=== PATIENT | female | born 1955 ===

== ENCOUNTER → 2020-12-06 11:16 | Outpatient (BNVA) | payer MEDICARE, MEDICAID, SELFPAY | PROVIDERS: PCP Internal Medicine; Visit Provider Internal Medicine | DX: J44.9 Chronic obstructive pulmonary disease, unspecified (principal); R05 Cough | CPT/HCPCS: 99212 ==

== ENCOUNTER 2021-01-09 13:11 | Outpatient (REF) | payer MEDICARE, MEDICAID, SELFPAY ==
--- NOTE | 2021-01-09 14:59 | PFT_ITS ---
The patient came to have pulmonary function test. She tried several times, but could not perform the test. She was just not able to hold her breath and blow out forcefully. Thus, this will be considered as no tests. MD TEODORO Heath/RADHA / [phone]
== END 2021-01-09 13:12 | disposition home or self-care (01) ==
LOC: HO.RESP 13:11
PROVIDERS: Visit Provider Internal Medicine
DX: J44.9 Chronic obstructive pulmonary disease, unspecified (principal); R05 Cough
CPT/HCPCS: 99212

== ENCOUNTER 2021-01-09 15:20 | Emergency (ER) | payer MEDICARE, MEDICAID, SELFPAY ==
[2021-01-09 15:27] VITALS: BP 177/88; PULSE 52; RESP 16; TEMP 36.7; O2SAT 98; BMI 36.8
== END 2021-01-09 17:08 | disposition left against medical advice (07) ==
PROVIDERS: Emergency Provider Emergency Medicine; PCP Internal Medicine
DX: R51.9 Headache, unspecified (principal); M79.10 Myalgia, unspecified site; J44.9 Chronic obstructive pulmonary disease, unspecified
CPT/HCPCS: 99212; 99281; 99283

== ENCOUNTER 2021-01-15 13:52 | Outpatient (REF) | payer MEDICARE, MEDICAID, SELFPAY ==
--- NOTE | ~2021-01-15 | MM_ITS ---
EXAMINATION: MM DIAGNOSTIC DIGITAL BREAST TOMOSYNTHESIS, BILATERAL CLINICAL INFORMATION: Due for yearly. Also follow-up probable benign asymmetric densities x2 medial right breast. The lifetime risk of breast cancer based on the Tyrer-Cuzick Model is 4%. COMPARISON: Mammography: 04/13/2019, 10/12/2018, 02/03/2018, 01/28/2018 (BI-RADS 0), 12/10/2016 TECHNIQUE: Digital breast tomosynthesis is performed in both the craniocaudal and mediolateral oblique views along with computer-aided detection (CAD). Synthesized 2D images are generated from the tomosynthesis. Additional views are obtained: Magnification right CC magnification right LM. FINDINGS: There are scattered areas of fibroglandular density (ACR BI-RADS breast composition Category b). The 2 nodular asymmetries lower inner right breast for follow-up are no longer clearly visualized. There is no developing density. Neither breast shows interval mass or architectural abnormality. There are no abnormal calcifications. The axilla and skin contours are unremarkable. Results are provided to the patient at time of visit by the technologist. Patient may return to routine annual screening. MM/MM tomosynthesis diagnostic BI IMPRESSION: No mammographic evidence of malignancy. ASSESSMENT: BI-RADS 2: Benign RECOMMENDATION: Routine annual mammography screening. This patient's information was entered into a reminder system with a target due date for their next mammogram.
== END 2021-01-15 13:53 | disposition home or self-care (01) ==
LOC: HO.MAMMO 13:52
PROVIDERS: PCP Internal Medicine; Visit Provider Internal Medicine
DX: R92.8 Other abnormal and inconclusive findings on diagnostic imaging of breast (principal)
CPT/HCPCS: 77062; 77066

== ENCOUNTER → 2021-03-21 12:59 | Outpatient (BNVA) | payer MEDICARE, MEDICAID, SELFPAY | PROVIDERS: PCP Internal Medicine; Visit Provider Internal Medicine | DX: J44.9 Chronic obstructive pulmonary disease, unspecified (principal); R05 Cough | CPT/HCPCS: 99212 ==

== ENCOUNTER → 2021-07-24 13:41 | Outpatient (BNVA) | payer MEDICARE, MEDICAID, SELFPAY | PROVIDERS: PCP Internal Medicine; Visit Provider Internal Medicine | DX: J44.9 Chronic obstructive pulmonary disease, unspecified (principal); R05 Cough; J30.9 Allergic rhinitis, unspecified; Z88.8 Allergy status to other drugs, medicaments and biological substances; Z79.899 Other long term (current) drug therapy | CPT/HCPCS: 99212 ==

== ENCOUNTER 2021-08-09 07:51 | Outpatient (REF) | payer MEDICARE, MEDICAID, SELFPAY ==
--- NOTE | ~2021-08-09 | XR_ITS ---
EXAMINATION: XR BILATERAL KNEE CLINICAL INFORMATION: Right knee pain. COMPARISON: Right knee 04/04/2020. TECHNIQUE: AP bilateral knee standing. Right knee 2 views. FINDINGS: AP BILATERAL KNEE: There is mild reduction in the medial and lateral compartments of both knees. No bony erosive changes seen. There is mild periarticular spurring medial and lateral compartment left knee. RIGHT KNEE: There is loss of patellar compartment joint space with moderate anterior superior patellar enthesophyte and anterior posterior smaller patellar enthesophyte. No loose body seen. No abnormal joint effusions seen. No acute fracture or dislocation. XR/XR knee RT 2V IMPRESSION: Mild degenerative changes medial and lateral compartment both knees. Moderate degenerative changes patellofemoral compartment right knee with superior patellar enthesophytes.
--- NOTE | ~2021-08-09 | XR_ITS ---
EXAMINATION: XR BILATERAL KNEE CLINICAL INFORMATION: Right knee pain. COMPARISON: Right knee 04/04/2020. TECHNIQUE: AP bilateral knee standing. Right knee 2 views. FINDINGS: AP BILATERAL KNEE: There is mild reduction in the medial and lateral compartments of both knees. No bony erosive changes seen. There is mild periarticular spurring medial and lateral compartment left knee. RIGHT KNEE: There is loss of patellar compartment joint space with moderate anterior superior patellar enthesophyte and anterior posterior smaller patellar enthesophyte. No loose body seen. No abnormal joint effusions seen. No acute fracture or dislocation. XR/XR knee standing BI IMPRESSION: Mild degenerative changes medial and lateral compartment both knees. Moderate degenerative changes patellofemoral compartment right knee with superior patellar enthesophytes.
== END 2021-08-09 07:52 | disposition home or self-care (01) ==
LOC: HO.HOSX 07:51
PROVIDERS: Visit Provider Physician Assistant
DX: M17.11 Unilateral primary osteoarthritis, right knee (principal); M25.561 Pain in right knee; M25.562 Pain in left knee; J00 Acute nasopharyngitis [common cold]; J44.9 Chronic obstructive pulmonary disease, unspecified; Z88.8 Allergy status to other drugs, medicaments and biological substances
CPT/HCPCS: 20610; 73560; 73565; 99202; J1040

== ENCOUNTER → 2022-01-15 13:46 | Outpatient (BNVA) | payer MEDICARE, MEDICAID, SELFPAY | PROVIDERS: PCP Internal Medicine; Visit Provider Internal Medicine | DX: J44.9 Chronic obstructive pulmonary disease, unspecified (principal); J30.9 Allergic rhinitis, unspecified | CPT/HCPCS: 99212 ==

== ENCOUNTER → 2022-03-31 13:16 | Outpatient (BNVA) | payer MEDICARE, MEDICAID, SELFPAY | PROVIDERS: PCP Internal Medicine; Visit Provider Physician Assistant | DX: M17.0 Bilateral primary osteoarthritis of knee (principal) | CPT/HCPCS: 20610; 99212; J1020 ==

== ENCOUNTER 2022-07-24 07:39 | Outpatient (REF) | payer MEDICARE, MEDICAID, SELFPAY ==
--- NOTE | ~2022-07-24 | MM_ITS ---
EXAMINATION: MM SCREENING DIGITAL BREAST TOMOSYNTHESIS, BILATERAL CLINICAL INFORMATION: Screening. Asymptomatic. The lifetime risk of breast cancer based on the Tyrer-Cuzick Model is 3%. COMPARISON: Mammography: 01/15/2021, 02/11/2019, 10/12/2018, 02/03/2018, 01/28/2018 TECHNIQUE: Digital breast tomosynthesis is performed in both the craniocaudal and mediolateral oblique views along with computer-aided detection (CAD). Synthesized 2D images are generated from the tomosynthesis. FINDINGS: There are scattered areas of fibroglandular density (ACR BI-RADS breast composition Category b). There are no significant masses, abnormal calcifications, or other abnormalities. Parenchymal pattern is similar to prior studies. There is no developing density or architectural abnormality. The axilla and skin contours are unremarkable. No significant changes. MM/MM tomosynthesis screening BI IMPRESSION: No mammographic evidence of malignancy. ASSESSMENT: BI-RADS 1: Negative RECOMMENDATION: Routine annual mammography screening. This patient's information was entered into a reminder system with a target due date for their next mammogram.
== END 2022-07-24 07:40 | disposition home or self-care (01) ==
LOC: HO.MAMMO 07:39
PROVIDERS: Visit Provider Internal Medicine
DX: Z12.31 Encounter for screening mammogram for malignant neoplasm of breast (principal)
CPT/HCPCS: 77063; 77067

== ENCOUNTER 2022-08-01 10:08 | Outpatient (REF) | payer MEDICARE, MEDICAID, SELFPAY ==
--- NOTE | ~2022-08-01 | XR_ITS ---
EXAMINATION: XR KNEE, RIGHT XR KNEE, LEFT XR KNEE, STANDING BILATERAL CLINICAL INFORMATION: Pain COMPARISON: Right knee radiograph from 08/09/2021, bilateral standing knees from 08/09/2021 TECHNIQUE: 2 views of each knee and single bilateral standing knees FINDINGS: RIGHT: No acute visible fracture or dislocation. Multi moderate multicompartment degenerative changes. Moderate narrowing of the medial femorotibial compartment and lateral patellofemoral compartment. Enthesopathy at the quadriceps insertion site. Fabella noted in the posterior compartment. Articular osteophyte along the tibial plateau and distal femoral condyle. Joint spaces and alignment are otherwise maintained. Small knee joint effusion. Soft tissues are unremarkable. LEFT: No acute visible fracture or dislocation. Mild to moderate compartment degenerative changes. Mild to moderate narrowing of the medial femorotibial compartment and lateral patellofemoral compartment. Periarticular aspect along the tibial plateau and distal femoral condyle. Enthesopathy at the quadriceps insertion site. A fabella is noted in the posterior compartment. Joint spaces and alignment are otherwise maintained. Small knee joint effusion. Soft tissues are unremarkable. XR/XR knee standing BI IMPRESSION: 1. No acute visible fracture or dislocation. 2. Bilateral mild to moderate multicompartment degenerative changes. 3. Bilateral small knee joint effusions.
--- NOTE | ~2022-08-01 | XR_ITS ---
EXAMINATION: XR KNEE, RIGHT XR KNEE, LEFT XR KNEE, STANDING BILATERAL CLINICAL INFORMATION: Pain COMPARISON: Right knee radiograph from 08/09/2021, bilateral standing knees from 08/09/2021 TECHNIQUE: 2 views of each knee and single bilateral standing knees FINDINGS: RIGHT: No acute visible fracture or dislocation. Multi moderate multicompartment degenerative changes. Moderate narrowing of the medial femorotibial compartment and lateral patellofemoral compartment. Enthesopathy at the quadriceps insertion site. Fabella noted in the posterior compartment. Articular osteophyte along the tibial plateau and distal femoral condyle. Joint spaces and alignment are otherwise maintained. Small knee joint effusion. Soft tissues are unremarkable. LEFT: No acute visible fracture or dislocation. Mild to moderate compartment degenerative changes. Mild to moderate narrowing of the medial femorotibial compartment and lateral patellofemoral compartment. Periarticular aspect along the tibial plateau and distal femoral condyle. Enthesopathy at the quadriceps insertion site. A fabella is noted in the posterior compartment. Joint spaces and alignment are otherwise maintained. Small knee joint effusion. Soft tissues are unremarkable. XR/XR knee LT 2V IMPRESSION: 1. No acute visible fracture or dislocation. 2. Bilateral mild to moderate multicompartment degenerative changes. 3. Bilateral small knee joint effusions.
--- NOTE | ~2022-08-01 | XR_ITS ---
EXAMINATION: XR KNEE, RIGHT XR KNEE, LEFT XR KNEE, STANDING BILATERAL CLINICAL INFORMATION: Pain COMPARISON: Right knee radiograph from 08/09/2021, bilateral standing knees from 08/09/2021 TECHNIQUE: 2 views of each knee and single bilateral standing knees FINDINGS: RIGHT: No acute visible fracture or dislocation. Multi moderate multicompartment degenerative changes. Moderate narrowing of the medial femorotibial compartment and lateral patellofemoral compartment. Enthesopathy at the quadriceps insertion site. Fabella noted in the posterior compartment. Articular osteophyte along the tibial plateau and distal femoral condyle. Joint spaces and alignment are otherwise maintained. Small knee joint effusion. Soft tissues are unremarkable. LEFT: No acute visible fracture or dislocation. Mild to moderate compartment degenerative changes. Mild to moderate narrowing of the medial femorotibial compartment and lateral patellofemoral compartment. Periarticular aspect along the tibial plateau and distal femoral condyle. Enthesopathy at the quadriceps insertion site. A fabella is noted in the posterior compartment. Joint spaces and alignment are otherwise maintained. Small knee joint effusion. Soft tissues are unremarkable. XR/XR knee RT 2V IMPRESSION: 1. No acute visible fracture or dislocation. 2. Bilateral mild to moderate multicompartment degenerative changes. 3. Bilateral small knee joint effusions.
== END 2022-08-01 10:09 | disposition home or self-care (01) ==
LOC: HO.HOSX 10:08
PROVIDERS: Visit Provider Physician Assistant
DX: M17.0 Bilateral primary osteoarthritis of knee (principal)
CPT/HCPCS: 20610; 73560; 73565; 99212; J1040

== ENCOUNTER → 2023-02-23 13:10 | Outpatient (BNVA) | payer MEDICARE, MEDICAID, SELFPAY | PROVIDERS: PCP Internal Medicine; Visit Provider Physician Assistant | DX: M17.11 Unilateral primary osteoarthritis, right knee (principal); M17.12 Unilateral primary osteoarthritis, left knee | CPT/HCPCS: 20610; 99212; J1040 ==

== ENCOUNTER → 2023-03-26 12:59 | Outpatient (BNVA) | payer MEDICARE, MEDICAID, SELFPAY | PROVIDERS: PCP Internal Medicine; Visit Provider Internal Medicine | DX: J44.9 Chronic obstructive pulmonary disease, unspecified (principal); R05.9 Cough, unspecified; Z87.891 Personal history of nicotine dependence | CPT/HCPCS: 99212 ==

== ENCOUNTER 2023-06-02 09:23 | Outpatient (REF) | payer MEDICARE, MEDICAID, SELFPAY ==
[2023-06-02 11:38] LABS: MANUAL DIFF FLAG NO
[2023-06-02 11:51] LABS: Basophils Absolute Auto 0.1 X10*3/uL (0.0-0.2); Basophils Percent Auto 1.1 % (0-2); Eosinophils Absolute Auto 0.1 X10*3/uL (0.0-0.4); Eosinophils Percent Auto 1.9 % (0-4); Hemoglobin 11.3 g/dl (12.0-16.0); Imm Gran Abs Auto 0.02 X10*3/uL (0.00-0.03); Imm Gran Pct Auto 0.3 % (0.0-0.4); Lymphocytes Absolute Auto 2.4 X10*3/uL (1.2-4.9); Lymphocytes Percent Auto 33.8 % (20-40); Mean Corpuscular HGB Conc 31.4 g/dl (31.0-35.0); Mean Corpuscular Hemoglobin 26.1 pg (27.0-33.0); Mean Corpuscular Volume 83.1 fL (80.0-98.0); Mean Platelet Volume 12.5 fL (9.4-12.3); Monocytes Absolute Auto 0.7 X10*3/uL (0.1-1.2); Monocytes Percent Auto 10.3 % (2-11); Neutrophils Absolute Auto 3.8 x10*3/uL (2.0-8.3); Neutrophils Percent Auto 52.6 % (45-73); Platelet Count 240 X10*3/uL (160-400); Red Blood Count 4.33 X10*6/uL (4.20-5.50); Red Cell Distribution Width 14.6 % (11.0-16.0); White Blood Count 7.2 X10*3/uL (4.8-10.8)
[2023-06-02 12:11] LABS: Estimated Average Glucose 114 mg/dL; Hemoglobin A1c % 5.6 %
[2023-06-02 12:24] LABS: HIV AB/AG Nonreactive (Nonreactive); HIV Num 1 0.05 S/CO (0.00-0.99)
[2023-06-02 12:25] LABS: ~HepC Num1 0.07 S/CO (0.00-0.79); ~Hepatitis C Antibody Nonreactive (Nonreactive)
== END 2023-06-02 09:24 | disposition home or self-care (01) ==
LOC: HO.HHCL 09:23
PROVIDERS: Visit Provider Internal Medicine
DX: R53.83 Other fatigue (principal); E83.10 Disorder of iron metabolism, unspecified
CPT/HCPCS: 36415; 83036; 85025; 86803; 87389

== ENCOUNTER 2023-08-10 10:24 | Outpatient (AMB) | payer MEDICARE, MEDICAID, SELFPAY ==
--- NOTE | 2023-08-10 10:38 | A.OFFVIS_ITS ---
Intake Vital Signs 08/10/23 10:47 Height 5 ft 4 in Weight 205 lb BMI 35.2 Intake Visit Reasons: OV- B/L Knee pain, last inj 02/23/23 Intake Note: Roxanne is a 67 year old female presents today for a follow up for her bilateral knee pain, last injection 02/23/23. Patient reports her last injection gave her relief for 5 months and would like to repeat. Allergies lisinopril [LISINOPRIL] Allergy (Unknown, Verified 08/10/23 10:38) UNK Vistaril Allergy (Unknown, Uncoded 03/26/23 13:37) Nausea, upset stomach HPI OV- B/L Knee pain, last inj 02/23/23 HPI Details 68-year-old female who presents in the [facility] today for a follow up of bilateral knee pain. The patient has a cortisone injection in the bilateral knees on 02/23/2023. She claims the injection gave her 5 months of relief. She would like to repeat the injection while in the office today. [facility] Medical History Allergic rhinitis COPD (chronic obstructive pulmonary disease) Cough Social History Patient Tobacco Use Status: Former Tobacco user Review of Systems Const All systems reviewed & are unremarkable except as noted in HPI and below Physical Exam Vital Signs: BMI result Body Mass Index 35.2 Const General: cooperative, healthy appearing and no acute distress Resp Effort & Inspection: normal respiratory effort and able to speak in complete sentences Cardio Rate: regular rate Peripheral pulses: Peripheral pulses 2+ throughout GI Palpation (GI): Soft to palpation Skin Lesions: no lesions Rashes: no rashes Extrem Other: Bilateral knees: Skin intact. No erythema or joint effusion. Full ROM with crepitus. Calf supple non tender. Office Procedures Joint Injection/Drain Joint Injection/Drain Primary Site: right knee Secondary Site: left knee Prep: site was prepped using aseptic technique, ethochloride spray was applied and injection warnings given Injected: 80 mg of, DepoMedrol, with 8 mL of (2% plain lido) and in the joint Approach Used: anterolateral Procedure: The patient tolerated the procedure well, but had some pain with the injection and there was some relief with the local anesthesia Coding - Large joint Procedure code (CPT) selection complete Results Reviewed Results Reviewed: 08/10/23 10:38 Lidocaine HCl 2 % MPF [Xylocaine 2 % MPF] 5 ml .ROUTE .STK-MED ONE methylPREDNISolone acetate [DEPO-MedroL] 80 mg .ROUTE .STK-MED ONE Assessment & Plan Assessment & Plan (1) Osteoarthritis of right knee: Code(s): M17.11 - Unilateral primary osteoarthritis, right knee Qualifiers: Osteoarthritis type: unspecified Qualified Code(s): M17.11 - Unilateral primary osteoarthritis, right knee (2) Osteoarthritis of left knee: Code(s): M17.12 - Unilateral primary osteoarthritis, left knee Qualifiers: Osteoarthritis type: unspecified Qualified Code(s): M17.12 - Unilateral primary osteoarthritis, left knee Plan Ms. Jono Azul is a 68-year-old female who presents in the office today for a follow up of bilateral knee pain. The patient has a cortisone injection in the bilateral knees on 02/23/2023. She claims the injection gave her 5 months of relief. She would like to repeat the injection while in the office today. The patient was offered a cortisone injection in the bilateral knees with 80 mg of DepoMedrol. The patient was explained the risk, benefits, and alternatives to receiving this injection. After receiving consent for the injection, the patient had the procedure done while in office today. The patient tolerated the procedure well with no complications. Follow up will be PRN, or sooner if needed. Patient Instructions: Scribed for Alena Chris PA-C by Larissa Ley emergency medical services coordinator, on 08/10/2023 at 10:25 am, EST. Coding Level of Care Code Est Pt Level 3 (13848) Diagnoses Osteoarthritis of right knee, unspecified osteoarthritis type M17.11 Osteoarthritis type: unspecified Osteoarthritis of left knee, unspecified osteoarthritis type M17.12 Osteoarthritis type: unspecified CPT Codes Coding - Large joint: 92101 - Large joint ([id number])
[2023-08-10 10:47] VITALS: BMI 35.2
== END 2023-08-10 10:53 | disposition home or self-care (01) ==
PROVIDERS: PCP Internal Medicine; Visit Provider Physician Assistant
DX: M17.0 Bilateral primary osteoarthritis of knee (principal)
CPT/HCPCS: 20610

== ENCOUNTER → 2023-08-10 10:24 | Outpatient (BNVA) | payer MEDICARE, MEDICAID, SELFPAY | PROVIDERS: PCP Internal Medicine; Visit Provider Physician Assistant | DX: M17.0 Bilateral primary osteoarthritis of knee (principal) | CPT/HCPCS: 20610; J1040 ==

== ENCOUNTER 2023-08-19 12:30 | Outpatient (REF) | payer MEDICARE, MEDICAID, SELFPAY | END 2023-08-19 12:31 | disposition home or self-care (01) | LOC: HO.MAMMO 12:30 | PROVIDERS: PCP Internal Medicine; Visit Provider Internal Medicine | DX: Z12.31 Encounter for screening mammogram for malignant neoplasm of breast (principal) | CPT/HCPCS: 77063; 77067 ==

== ENCOUNTER → 2023-08-19 13:45 | Outpatient (BNV) | payer MEDICARE, MEDICAID, SELFPAY | PROVIDERS: PCP Internal Medicine; Visit Provider Radiology Diagnostic Radiology | DX: Z12.31 Encounter for screening mammogram for malignant neoplasm of breast (principal) | CPT/HCPCS: 77063; 77067 ==

== ENCOUNTER 2023-09-24 12:49 | Outpatient (AMB) | payer MEDICARE, MEDICAID, SELFPAY ==
--- NOTE | 2023-09-24 13:13 | A.OFFVIS_ITS ---
Intake Vital Signs 09/24/23 13:17 Height 5 ft 4 in Weight 207 lb 3.752 oz BMI 35.6 BP 120/64 Blood Pressure Location Lt brachial Position Sitting Pulse 52 Pulse Source Pulse Oximeter Pulse Oximetry (%) 96 Oxygen Delivery Method Room Air Intake Visit Reasons: Asthma Intake Note: pt is here for follow up and states she has not been feeling well for a few weeks, had episode of bus 2 weeks ago, and since than not right. coughing with phlgem and chest pain Pt states advair and incruse does not help, and she cannot get incruse any longer, been out for 2 months. Allergies lisinopril [LISINOPRIL] Allergy (Unknown, Verified 09/24/23 13:36) UNK Vistaril Allergy (Unknown, Uncoded 09/24/23 13:36) Nausea, upset stomach Do you need a note to return to daycare/school/sports/work: No HPI Asthma HPI Details THIS 68 YEARS OLD VERY PLEASANT FEMALE IS COMING AFTER 6 MONTHS FOR FOLLOW-UP. SHE SAY IS FOR THE LAST COUPLE MONTHS HER BREATHING IS NOT GOOD. SHE GETS TIGHT FEELING ACROSS THE CHEST AND ALSO GETS SHORT OF BREATH ON MINIMAL WALKING. HOWEVER SHE DOES NOT HAVE MUCH COUGH OR WHEEZING. SHE HAS HAD NO RECENT INFECTION. SHE TELLS US THAT SHE HAS BEEN OUT OF HER INCRUSE FOR THE LAST 2 MONTHS, BECAUSE HER INSURANCE DID NOT ALLOW IT. THIS MAY BE THE REASON WHY HER BREATHING IS SOMEWHAT WORSE THAN BEFORE. [facility] Medical History Allergic rhinitis Cough COPD (chronic obstructive pulmonary disease) Social History Patient Tobacco Use Status: Former Tobacco user Review of Systems Const All systems reviewed & are unremarkable except as noted in HPI and below Eyes Reports no additional complaints ENT Reports no additional complaints and Reports nasal congestion (Mild intermittent) Card Denies chest pain, Denies irregular heart rhythm and Reports leg edema Resp Reports as per HPI GI Reports no additional complaints Musc Reports back pain (MILD , MOSTLY ON THE RT SIDE ) Skin/Breast Reports system reviewed and no additional complaints, except as documented Neuro Reports no additional complaints Psych Reports no additional complaints Physical Exam Vital Signs: Last Vital Signs Pulse 52 09/24/23 13:17 BP 120/64 09/24/23 13:17 Pulse Ox 96 09/24/23 13:17 Oxygen Delivery Method Room Air 09/24/23 13:17 BMI result Body Mass Index 35.6 Const General: healthy appearing (Except for being overweight), comfortable, no acute distress, alert and awake Orientation/consciousness: patient oriented x3 HEENT Head: Yes normal to inspection General nose exam: No nasal polyps present, No nasal discharge present and Other nasal findings present (Mild nasal congestion) Face and sinus: Yes sinuses nontender Mouth: oropharynx normal Throat: Yes posterior oropharynx normal Eyes General: appearance normal, both eyes and all related structures Neck Neck: Yes normal visual inspection, Yes no lymphadenopathy, Yes trachea midline and Yes no JVD Thyroid: Thyroid normal Chest Chest palpation & inspection: normal inspection of the chest, normal palpation of entire chest wall and no tenderness Resp Other: Percussion note resonant, good breath sounds on both sides slightly distant, and prolonged expiratory phase. No wheezes rhonchi or crepitations are heard. Cardio Palpation: normal PMI Rate: regular rate Rhythm: regular rhythm Heart sounds: no gallops and no murmurs Peripheral pulses: Peripheral pulses 2+ throughout GI Palpation (GI): Soft to palpation, nontender, No hepatosplenomegaly present and no masses Auscultation: normal bowel sounds Back/Spine/Pelvis Thoracic/Lumbar Spine: thoracic and lumbar spine normal to inspection and thoraco-lumbar ROM limited Skin General skin exam: no rashes or lesions noted Neuro General: patient oriented x3 and no focal motor deficits Cranial nerves: Yes CN's II-XII intact bilaterally Extrem General: Yes normal to inspection, Yes no clubbing, cyanosis or edema and Yes no calf tenderness Psych Appearance: grossly normal and well kempt Speech and movement: Normal speech and movement present Assessment & Plan Assessment & Plan (1) COPD (chronic obstructive pulmonary disease): Comment: This patient does have chronic obstructive pulmonary disease for the last many years. Currently doing well with meds : ADVAIR 250-50 ONE INH BID ( DOSE DECREASED TO 250-50 ) WILL CHANGE INCRUSE 2 SPIRIVA HANDIHALER, AND HOPE THAT THIS WOULD BE COVERED BY HER INSURANCE. ALBUTEROL HFA 2 PUFFS Q 4-6 HOURS P.R.N. Code(s): J44.9 - Chronic obstructive pulmonary disease, unspecified (2) Cough: Comment: Cough is mostly related to her COPD, and is down to minimal . May use cough drops PRN . Code(s): R05 - Cough (3) Allergic rhinitis: Comment: CHRONIC, WELL CONTROLLED. TX : CONTINUE MONTELUKAST 10 MG DAILY, LORATADINE 10 MG P.R.N., AND FLONASE 2 SPRAY EACH NOSTRIL DAILY Code(s): J30.9 - Allergic rhinitis, unspecified Coding Level of Care Code Est Pt Level 3 (99517) Diagnoses COPD (chronic obstructive pulmonary disease) J44.9 Cough R05 Allergic rhinitis J30.9
[2023-09-24 13:17] VITALS: BP 120/64; PULSE 52; O2SAT 96; BMI 35.6
== END 2023-09-24 13:37 | disposition home or self-care (01) ==
PROVIDERS: PCP Internal Medicine; Visit Provider Internal Medicine
DX: J44.9 Chronic obstructive pulmonary disease, unspecified (principal); R05.9 Cough, unspecified; J30.9 Allergic rhinitis, unspecified
CPT/HCPCS: 99213

== ENCOUNTER → 2023-09-24 12:49 | Outpatient (BNVA) | payer MEDICARE, MEDICAID, SELFPAY | PROVIDERS: PCP Internal Medicine; Visit Provider Internal Medicine | DX: J44.9 Chronic obstructive pulmonary disease, unspecified (principal); J30.9 Allergic rhinitis, unspecified; R05.9 Cough, unspecified | CPT/HCPCS: 99212 ==

== ENCOUNTER → 2024-01-20 14:11 | Outpatient (BNVA) | payer MEDICARE, MEDICAID, SELFPAY | PROVIDERS: PCP Internal Medicine; Visit Provider Nurse Practitioner ==

== ENCOUNTER 2024-02-11 14:19 | Outpatient (AMB) | payer MEDICARE, MEDICAID, SELFPAY ==
--- NOTE | 2024-02-11 14:32 | A.OFFVIS_ITS ---
Intake Intake Visit Reasons: OV- B/L Knee pain Intake Note: Roxanne is a 68 year old female presents today for a follow up for her bilateral knee OA, last injection 08/10/23. Patient reports her last injection gave her 9 months of relief. She states the she would like to repeat due to having her pain coming back 2 weeks ago. Allergies lisinopril [LISINOPRIL] Allergy (Unknown, Verified 02/11/24 14:33) UNK Vistaril Allergy (Unknown, Uncoded 09/24/23 13:36) Nausea, upset stomach HPI OV- B/L Knee pain HPI Details 68-year-old female who presents in the [facility] today for a follow up of bilateral knee pain. I last saw the patient in the office on 08/08/2023. At this time she received bilateral knee cortisone injections. She reports having 9 months of relief. She would like to repeat injections while in the office today. [facility] Medical History Allergic rhinitis Cough COPD (chronic obstructive pulmonary disease) Surgical History H/O colonoscopy History of cone biopsy of uterine cervix History of tubal ligation History of cholecystectomy Social History Alcohol intake: never Patient Tobacco Use Status: Former Tobacco user Review of Systems Const All systems reviewed & are unremarkable except as noted in HPI and below Physical Exam Const General: cooperative, healthy appearing and no acute distress Resp Effort & Inspection: normal respiratory effort and able to speak in complete sentences Cardio Rate: regular rate Peripheral pulses: Peripheral pulses 2+ throughout GI Palpation (GI): Soft to palpation Skin Lesions: no lesions Rashes: no rashes Extrem Other: Bilateral knees: Skin intact. No erythema or joint effusion. Full ROM with crepitus. Calf supple non tender. Office Procedures Joint Injection/Drain Joint Injection/Drain Primary Site: right knee Secondary Site: left knee Prep: site was prepped using aseptic technique, ethochloride spray was applied and injection warnings given Injected: 80 mg of, DepoMedrol, with 8 mL of (2% plain lido ) and in the joint Approach Used: anterolateral Procedure: The patient tolerated the procedure well, but had some pain with the injection and there was some relief with the local anesthesia Coding 69674 - Large joint Procedure code (CPT) selection complete Assessment & Plan Assessment & Plan (1) Osteoarthritis of right knee: Code(s): M17.11 - Unilateral primary osteoarthritis, right knee Qualifiers: Osteoarthritis type: unspecified Qualified Code(s): M17.11 - Unilateral primary osteoarthritis, right knee (2) Osteoarthritis of left knee: Code(s): M17.12 - Unilateral primary osteoarthritis, left knee Qualifiers: Osteoarthritis type: unspecified Qualified Code(s): M17.12 - Unilateral primary osteoarthritis, left knee Plan Ms. Jono Azul is a 68-year-old female who presents in the office today for a follow up of bilateral knee pain. I last saw the patient in the office on 08/08/2023. At this time she received bilateral knee cortisone injections. She reports having 9 months of relief. She would like to repeat injections while in the office today. The patient was offered a cortisone injection in the bilateral knees with 80 mg of DepoMedrol. The patient was explained the risk, benefits, and alternatives to receiving this injection. After receiving consent for the injection, the patient had the procedure done while in office today. The patient tolerated the procedure well with no complications. Follow up will be PRN, or sooner if needed. Patient Instructions: Scribed by Larissa Ley director medical, for Alena Chris PA-C on 02/02/2024 at 2:25 pm, EST. Coding Level of Care Code Est Pt Level 3 (86683) Diagnoses Osteoarthritis of right knee, unspecified osteoarthritis type M17.11 Osteoarthritis type: unspecified Osteoarthritis of left knee, unspecified osteoarthritis type M17.12 Osteoarthritis type: unspecified CPT Codes Coding - 30936 Large joint: 53611 - Large joint ([id number])
== END 2024-02-11 14:44 | disposition home or self-care (01) ==
LOC: HO.HOS 14:19
PROVIDERS: PCP Internal Medicine; Visit Provider Physician Assistant
DX: M17.0 Bilateral primary osteoarthritis of knee (principal)
CPT/HCPCS: 20610; 99213

== ENCOUNTER → 2024-02-11 14:19 | Outpatient (BNVA) | payer MEDICARE, MEDICAID, SELFPAY | PROVIDERS: PCP Internal Medicine; Visit Provider Physician Assistant | DX: M17.0 Bilateral primary osteoarthritis of knee (principal) | CPT/HCPCS: 20610; 99212; J1040 ==

== ENCOUNTER 2024-04-09 16:07 | Emergency (ER) | payer OTHER, SELFPAY ==
--- NOTE | ~2024-04-09 | XR_ITS ---
EXAMINATION: XR CHEST CLINICAL INFORMATION: Chest pain COMPARISON: Chest x-ray May 22, 2020 TECHNIQUE: 2 views of the chest were obtained. FINDINGS: Lungs are clear. No pulmonary vascular congestion. There is no pleural effusion. The heart size is normal. The cardiac and mediastinal contours are normal. There are calcifications of the thoracic aorta. There are multilevel degenerative changes of dorsal spine. XR/XR chest 2V IMPRESSION: Unremarkable examination.
--- NOTE | 2024-04-09 16:10 | ECG_ITS ---
Test Reason : CHEST PAINS Blood Pressure : / mmHG Vent. Rate : 062 BPM Atrial Rate : 062 BPM P-R Int : 162 ms QRS Dur : 120 ms QT Int : 434 ms P-R-T Axes : 025 -34 019 degrees QTc Int : 440 ms Normal sinus rhythm Left axis deviation Right bundle branch block Abnormal ECG When compared with ECG of 05-JUN-2018 18:01, Right bundle branch block is now Present Referred By: Umu Khan Electronically Signed By:Atif Wolf
--- NOTE | 2024-04-09 16:16 | ED_ITS ---
HPI - Chest Pain General Chief Complaint: Chest Pain Stated Complaint: chest pain high bp Time Seen by Provider: 04/10/24 02:24 Source: patient Mode of arrival: ambulatory Limitations: language barrier (Her 1st language is Nauruan, she does speak Occitan, bin packer was used) History of Present Illness ED Provider: Dr. Basil Lentz HPI narrative: 68-year-old female history of hypertension, COPD, depression, anxiety this emergency department for evaluation of chest pain and elevated blood pressure. The patient states that her brother proximally 1 month prior and she went to [place] for the . She states that since going to the she has had intermittent chest pain. She states she gets it 2 to 3 times a week. She states that when she gets the pain at a last for minutes and she will get multiple episodes throughout the day. She points to her sternum when asked to localize the pain, the pain is a intermittent tightness lasting minutes and recurring frequently throughout the day when she gets the episodes. The pain does not radiate to her neck, jaw, back or arms. She does feel short of breath with the pain. She states the pain come on at rest or with exertion. On the day of arrival the patient states she had 6 episodes of chest pain therefore she came to the emergency department for evaluation. She states that her blood pressure has been elevated approximately 3 months prior the patient's PCP did increase her losartan that this is not helped her blood pressure. She was also started on sertraline for depression but she states that this medication gave her bad dreams and made her feel bad therefore she stopped taking it. Related Data Home Medications ?Medication ?Instructions ?Recorded ?Confirmed losartan 25 mg tablet 25 mg PO DAILY 12/06/20 montelukast 10 mg tablet 10 mg PO BEDTIME 12/06/20 (Singulair) cyanocobalamin (vitamin B-12) 1,000 mcg PO QAM 01/09/21 1,000 mcg tablet ferrous sulfate 325 mg (65 mg 325 mg PO Q OTHER DAY 01/09/21 iron) tablet fluticasone propionate 50 intranasal 01/09/21 mcg/actuation nasal spray,suspension simvastatin 20 mg tablet 20 mg PO BEDTIME 01/09/21 loratadine 10 mg tablet 10 mg PO DAILY 03/21/21 hydroxyzine HCl 25 mg tablet 25 mg PO TID 08/01/22 losartan 50 mg tablet 50 mg PO DAILY 08/01/22 Previous Rx's ?Medication ?Instructions ?Recorded diclofenac sodium 1 % topical gel 4 g topical QID PRN for pain #100 02/23/23 grams fluticasone 250 mcg-salmeterol 50 1 inh inhalation Q12H 30 days #60 09/24/23 mcg/dose blistr powdr for ea inhalation (Advair Diskus) umeclidinium 62.5 mcg/actuation 1 inh inhalation DAILY COPD 30 09/24/23 blister powder for inhalation days #30 ea (Incruse Ellipta) albuterol sulfate 90 mcg/actuation 2 puff inhalation Q4-6H PRN 10/05/23 aerosol inhaler (Ventolin HFA) shortness of breath or wheezing 30 days #8.5 grams levalbuterol tartrate 45 2 puff inhalation Q4-6H PRN 11/03/23 mcg/actuation aerosol inhaler shortness of breath 30 days #15 grams bisacodyl 5 mg tablet,delayed 10 mg (2 x 5 mg) PO BEDTIME 2 days 01/20/24 release (Dulcolax (bisacodyl)) #4 tabs peg 3350-electrolytes 236 240 ml PO Q10M 1 day #4,000 mL 01/20/24 gram-22.74 gram-6.74 gram-5.86 gram solution (Golytely) tiotropium bromide 2.5 2 inh inhalation QAM COPD 30 days 02/15/24 mcg/actuation mist for inhalation #4 grams (Spiriva Respimat) lorazepam 0.5 mg tablet (Ativan) 0.5 mg PO TID PRN anxiety #10 tabs 04/10/24 Allergies Allergy/AdvReac Type Severity Reaction Status Date / Time lisinopril [LISINOPRIL] Allergy Unknown UNK Verified 04/09/24 16:18 Vistaril Allergy Unknown Nausea, Uncoded 09/24/23 13:36 upset stomach Review of Systems 2 Review of Systems: Yes all other systems are reviewed and are negative [facility] Past Medical History [facility] Narrative: Social history: She denies tobacco, alcohol and drug use. Medical History Allergic rhinitis Cough COPD (chronic obstructive pulmonary disease) Surgical History H/O colonoscopy History of cone biopsy of uterine cervix History of tubal ligation History of cholecystectomy Social History Social History Alcohol intake: never Patient Tobacco Use Status: Former Tobacco user Advance Directives: No Advance Directives Information Provided: Yes Physical Exam 2 Vital Signs: Vital Signs: Last Vital Signs Temp 98.2 F 04/10/24 01:57 Pulse 47 L 04/10/24 02:02 Resp 13 04/10/24 02:02 BP 185/54 H 04/10/24 02:02 Pulse Ox 100 04/10/24 01:57 O2 Del Method Room Air 04/10/24 01:57 BMI result Body Mass Index 34.4 Vital signs revealed elevated blood pressure 185/54 with low heart rate of 47. Exam: General: Awake, alert in no distress Head: Normocephalic, atraumatic EENT: PERRL, Lids normal, sclera normal, conjunctiva normal, nose normal , ears normal, throat without erythema or exudates Neck: Supple, no adenopathy Lung: breath sounds symmetric, no wheezing, rales or rhonchi Chest: symmetric movement, nontender Heart: Bradycardia with a normal S1-S2, 2/6 systolic murmur best heard at the left lower sternal border Abdomen: soft, non-tender, nondistended, normal bowel sounds Back: no vertebral tenderness, no CVAT Extremities: no deformities, moves all extremities symmetrically Neuro: Awake, alert, oriented, normal speech, cranial nerves intact, moves all extremities symmetrically Psych: Pleasant, cooperative Course Course Course Narrative: This is an RME: Additional HPI, ROS, PE not included below will be deferred to primary provider. RME assessment and note performed by: Umu Khan PA-C This is a 43-[id number]-female, with a hx of COPD, HLD, HTN, who presents to the ER with complaints of CP for 3-4 days. Endorsing shortness of breath Plan: Medical Decision Making Medical Decision Making MDM Narrative: 68-year-old female with a history of hypertension, COPD, depression, anxiety presents emergency department for evaluation of intermittent chest pain x1 month since attending her brother's in [place]. She gets the chest pain 2-3 times per week, pain is located in the sternal area, lasts minutes but gets multiple episodes throughout the day. She did have multiple episodes prior to coming to the emergency department. Patient is also complaining of elevated blood pressure and her PCP did increase her blood pressure medicine 3 months prior. Elevated blood pressure and bradycardia-she states that she always has a low heart rate. Physical examination was otherwise unremarkable. Differential diagnosis: ?Includes but is not limited to myocardial infarction, myocardial ischemia, costochondritis, chest wall pain, grief, anxiety, depression Following evaluation was ordered: CBC, CMP, magnesium, troponin with repeat 3 hour troponin, chest x-ray, EKG Patient was initially treated with the following: Lorazepam 0.5 mg orally Course: 03:24 My independent interpretation patient's laboratory evaluation is as follows: CBC was normal. CMP was normal. First troponin was 12.2, 3 hour troponin was 12.5-this does not exceed 50% delta suggesting the patient's pain is not secondary to myocardial infarction myocardial ischemia. Patient's lipase and magnesium were normal. Patient's 12 EKG did reflect bradycardia but no evidence for myocardial infarction or ischemia Chest x-ray was unremarkable. Patient's pain is most likely secondary to a grief reaction and I did discuss this with her. Patient was given a prescription for lorazepam 0.5 mg 3 times a day as needed for anxiety. She was advised to check her blood pressure 3 times a week for 2 weeks and follow-up with her doctor to discuss these readings to determine she needs a change in her blood pressure regimen. She was given printed and verbal instructions and discharged home. Admission/Observation Consideration of admission/observation: Escalation of care including admission/observation considered Lab Data [facility] Lab Attestation statement: I reviewed the patient's lab results. 04/09/24 16:38 04/09/24 16:38 Labs: Lab Results 04/09/24 04/09/24 Range/Units 16:38 22:49 WBC 7.0 (4.8-10.8) X10*3/uL RBC 4.52 (4.20-5.50) X10*6/uL Hgb 11.9 L (12.0-16.0) g/dl Hct 36.6 L (37.0-47.0) % MCV 81.0 (80.0-98.0) fL MCH 26.3 L (27.0-33.0) pg MCHC 32.5 (31.0-35.0) g/dl RDW 15.0 (11.0-16.0) % Plt Count 229 (160-400) X10*3/uL MPV 11.5 (9.4-12.3) fL Immature Gran % (Auto) 0.3 (0.0-0.4) % Neut % (Auto) 55.9 (45-73) % Lymph % (Auto) 32.5 (20-40) % [place] % (Auto) 8.8 (2-11) % Eos % (Auto) 1.4 (0-4) % Baso % (Auto) 1.1 (0-2) % Lymph # (Auto) 2.3 (1.2-4.9) X10*3/uL [place] # (Auto) 0.6 (0.1-1.2) X10*3/uL Eos # (Auto) 0.1 (0.0-0.4) X10*3/uL Baso # (Auto) 0.1 (0.0-0.2) X10*3/uL Abs Immat Gran (auto) 0.02 (0.00-0.03) X10*3/uL Absolute Neuts (auto) 3.9 (2.0-8.3) x10*3/uL Absolute Nucleated RBC 0.000 (0.0-0.012) X10*3/uL Nucleated RBC % (auto) 0.0 (0.0-0.2) /100WBC Sodium 141 (135-145) mmol/L Potassium 4.2 (3.3-5.1) mmol/L Chloride 106 (96-108) mmol/L Carbon Dioxide 28 (22-29) mmol/L Anion Gap 11 L (12-20) BUN 15 (9-16) mg/dL Creatinine 0.69 (0.5-1.4) mg/dL Estim Creat Clear Calc 84.0 Estimated GFR > 60 Random Glucose 99 (60-115) mg/dL Calcium 9.6 (8.4-10.2) mg/dL Magnesium 1.9 (1.6-2.6) mg/dL Total Bilirubin 0.4 (0.0-1.0) mg/dL Direct Bilirubin 0.2 (0.0-0.5) mg/dL AST 17 (5-31) U/L ALT 17 (0-31) U/L Alkaline Phosphatase 66 (39-117) U/L Troponin I High Sens 12.2 12.5 (<3.5-17.0) ng/L Total Protein 7.5 (6.5-8.0) g/dL Albumin 4.1 (3.5-5.0) g/dL Lipase 18 (8-78) U/L Independent Interpretation I performed an independent interpretation of an: EKG and Plain X-Ray Interpretation: My independent interpretation the patient's 12 EKG done at 02:17 hours is as follows: Sinus bradycardia with a rate of 50, normal [place] interval, prolonged QRS duration of 126 milliseconds, normal QTC interval, patient has right bundle- branch block, no ST segment elevation, no ST segment depression, nonspecific T- wave abnormalities, no PACs, no PVCs My independent interpretation patient's chest x-ray is as follows: No acute disease Radiology Impression Discussion of test interpretation with radiology: I have reviewed the radiologist's reading. Radiologist Impression: XR chest 2V IMPRESSION: Unremarkable examination. Dictated By: Alin Garner MD Independent Historian Clinical information obtained from an independent historian. History obtained from or confirmed by: Other (Daughter) Prescription Management I considered prescription management with: Other (Anti anxiolytic) Chronic Conditions Patient?s care impacted by: Hypertension and Other (COPD) Discharge Plan Discharge Clinical Impression: Chest pain, Anxiety, Bradycardia, sinus, Primary hypertension Patient Disposition: Home, Self-Care Additional Instructions: Your blood work was normal. Your EKG was unremarkable except for slow heart rate past and this is not related to your chest pain or your high blood pressure Your chest x-ray was normal Your blood work was unremarkable, you had had 2 troponins (markers of heart damage) which were this is very reassuring and suggests that your chest pain is not caused by heart damage your heart attack Your chest pain is most likely caused by your grief and anxiety Take Ativan 0.5 mg pills, 1 pill every 6 hours as needed for anxiety. ?This medication will make you sleepy, do not drive or work while taking this medication. ?This medication can be addicting, if your concerned about addiction you can ask the pharmacist for less medications or do not get the prescription filled. I want you to check your blood pressures on Mondays, Wednesdays and Fridays for 2 weeks. Check these in the morning when you wake up. Write these blood pressure readings down and after 2 weeks follow-up with your doctor to show these blood pressure readings to them. If your doctor thinks that these blood pressure readings are high and they can change your medications Follow-up with your doctor in 2 days. Please return to the emergency department if your symptoms get worse or if you develop any symptoms that are concerning to you. Prescriptions: New lorazepam [Ativan] 0.5 mg tablet 0.5 mg PO TID PRN (Reason: anxiety) Qty: 10 0RF Rx Instructions: patient may ask for partial fill No Action albuterol sulfate [Ventolin HFA] 90 mcg/actuation HFA aerosol inhaler 2 puff inhalation Q4-6H PRN (Reason: shortness of breath or wheezing) 30 Days Qty: 8.5 3RF levalbuterol tartrate 45 mcg/actuation HFA aerosol inhaler 2 puff inhalation Q4-6H PRN (Reason: shortness of breath) 30 Days Qty: 15 3RF peg 3350-electrolytes [Golytely] 236-22.74-6.74 -5.86 gram recon soln 240 ml PO Q10M 1 Days Qty: 4000 0RF Rx Instructions: until fecal effluent is clear; do not exceed a total volume of 2,000 mL bisacodyl [Dulcolax (bisacodyl)] 5 mg tablet,delayed release (DR/EC) 10 mg PO BEDTIME 2 Days Qty: 4 0RF Spiriva Respimat 2.5 mcg/actuation mist 2 inh inhalation QAM 30 Days Qty: 4 3RF montelukast [Singulair] 10 mg tablet 10 mg PO BEDTIME losartan 25 mg tablet 25 mg PO DAILY fluticasone propionate 50 mcg/actuation spray,suspension intranasal simvastatin 20 mg tablet 20 mg PO BEDTIME ferrous sulfate 325 mg (65 mg iron) tablet 325 mg PO Q OTHER DAY cyanocobalamin (vitamin B-12) 1,000 mcg tablet 1,000 mcg PO QAM loratadine 10 mg tablet 10 mg PO DAILY losartan 50 mg tablet 50 mg PO DAILY hydroxyzine HCl 25 mg tablet 25 mg PO TID diclofenac sodium 1 % gel 4 g topical QID PRN (Reason: for pain) Qty: 100 3RF fluticasone propion-salmeterol [Advair Diskus] 250-50 mcg/dose blister with device 1 inh inhalation Q12H 30 Days Qty: 60 5RF Incruse Ellipta 62.5 mcg/actuation blister with device 1 inh inhalation DAILY 30 Days Qty: 30 5RF Print Language: Nauruan
[2024-04-09 16:17] VITALS: BP 148/70; PULSE 63; RESP 18; TEMP 37.4; O2SAT 98; BMI 34.4
[2024-04-09 16:45] LABS: MANUAL DIFF FLAG NO
[2024-04-09 16:49] LABS: Basophils Absolute Auto 0.1 X10*3/uL (0.0-0.2); Basophils Percent Auto 1.1 % (0-2); Eosinophils Absolute Auto 0.1 X10*3/uL (0.0-0.4); Eosinophils Percent Auto 1.4 % (0-4); Hematocrit 36.6 % (37.0-47.0); Hemoglobin 11.9 g/dl (12.0-16.0); Imm Gran Abs Auto 0.02 X10*3/uL (0.00-0.03); Imm Gran Pct Auto 0.3 % (0.0-0.4); Lymphocytes Absolute Auto 2.3 X10*3/uL (1.2-4.9); Lymphocytes Percent Auto 32.5 % (20-40); Mean Corpuscular HGB Conc 32.5 g/dl (31.0-35.0); Mean Corpuscular Hemoglobin 26.3 pg (27.0-33.0); Mean Platelet Volume 11.5 fL (9.4-12.3); Monocytes Absolute Auto 0.6 X10*3/uL (0.1-1.2); Monocytes Percent Auto 8.8 % (2-11); Neutrophils Absolute Auto 3.9 x10*3/uL (2.0-8.3); Neutrophils Percent Auto 55.9 % (45-73); Platelet Count 229 X10*3/uL (160-400); Red Blood Count 4.52 X10*6/uL (4.20-5.50)
[2024-04-09 17:19] LABS: Alanine Aminotransferase 17 U/L (0-31); Albumin Level 4.1 g/dL (3.5-5.0); Alkaline Phosphatase 66 U/L (39-117); Anion Gap 11 (12-20); Aspartate Amino Transferase 17 U/L (5-31); Bilirubin Direct 0.2 mg/dL (0.0-0.5); Bilirubin Total 0.4 mg/dL (0.0-1.0); Blood Urea Nitrogen 15 mg/dL (9-16); Calcium 9.6 mg/dL (8.4-10.2); Carbon Dioxide 28 mmol/L (22-29); Chloride 106 mmol/L (96-108); Estimated Glomerular Filt Rate > 60; Glucose Random 99 mg/dL (60-115); Lipase 18 U/L (8-78); Magnesium 1.9 mg/dL (1.6-2.6); Potassium 4.2 mmol/L (3.3-5.1); Sodium 141 mmol/L (135-145); Total Protein 7.5 g/dL (6.5-8.0)
[2024-04-09 17:26] LABS: Troponin-I High Sensitivity 12.2 ng/L (<3.5-17.0)
[2024-04-09 22:43] VITALS: BP 172/48; PULSE 79; RESP 14; TEMP 35.8; O2SAT 100
[2024-04-09 23:23] LABS: Troponin-I High Sensitivity 12.5 ng/L (<3.5-17.0)
--- NOTE | 2024-04-10 | ECG_ITS ---
Test Reason : bradycardia Blood Pressure : / mmHG Vent. Rate : 050 BPM Atrial Rate : 050 BPM P-R Int : 180 ms QRS Dur : 126 ms QT Int : 496 ms P-R-T Axes : 023 -33 -46 degrees QTc Int : 452 ms Sinus bradycardia Left axis deviation Right bundle branch block Abnormal ECG When compared with ECG of 09-APR-2024 16:09, Nonspecific T wave abnormality, worse in Inferior leads Nonspecific T wave abnormality no longer evident in Lateral leads Referred By: Generic ED Physician Electronically Signed By:Atif Wolf
[2024-04-10 01:57] VITALS: BP 189/66; PULSE 47; RESP 12; TEMP 36.8; O2SAT 100
--- NOTE | 2024-04-10 02:00 | PC.NURSE ---
pt brought in frm [facility] and placed on heart monitor. jone on monitor at 46 bpm. repeat ekg ordered. Dr. Lentz aware.
[2024-04-10 02:02] VITALS: BP 185/54; PULSE 47; RESP 13
[2024-04-10] MEDS: LORazepam 0.5 MG TABLET PO (03:58)
[2024-04-10 04:00] VITALS: BP 158/57; PULSE 55; RESP 16; TEMP 36.7
== END 2024-04-10 04:09 | disposition home or self-care (01) ==
PROVIDERS: Physician Assistant Medical; Emergency Provider Emergency Medicine Emergency Medical Services; PCP Internal Medicine
DX: R07.9 Chest pain, unspecified (principal); F41.9 Anxiety disorder, unspecified; R00.1 Bradycardia, unspecified; I10 Essential (primary) hypertension; J44.9 Chronic obstructive pulmonary disease, unspecified; E78.00 Pure hypercholesterolemia, unspecified; Z87.891 Personal history of nicotine dependence; Z79.02 Long term (current) use of antithrombotics/antiplatelets; Z79.899 Other long term (current) drug therapy
CPT/HCPCS: 36415; 71046; 80048; 80076; 83690; 83735; 84484; 85025; 93005; 99283; 99284

== ENCOUNTER → 2024-04-09 16:10 | Outpatient (BNV) | payer OTHER, SELFPAY | PROVIDERS: Emergency Provider Emergency Medicine Emergency Medical Services; PCP Internal Medicine; Visit Provider Internal Medicine Cardiovascular Disease | DX: R07.9 Chest pain, unspecified (principal) | CPT/HCPCS: 93010 ==

== ENCOUNTER → 2024-04-10 02:17 | Outpatient (BNV) | payer OTHER, SELFPAY | PROVIDERS: Emergency Provider Emergency Medicine Emergency Medical Services; PCP Internal Medicine; Visit Provider Internal Medicine Cardiovascular Disease | DX: R00.1 Bradycardia, unspecified (principal) | CPT/HCPCS: 93010 ==

== ENCOUNTER 2024-05-02 15:51 | Emergency (ER) | payer OTHER, SELFPAY ==
--- NOTE | 2024-05-02 15:52 | ECG_ITS ---
Test Reason : CHEST PAIN Blood Pressure : / mmHG Vent. Rate : 052 BPM Atrial Rate : 052 BPM P-R Int : 168 ms QRS Dur : 132 ms QT Int : 470 ms P-R-T Axes : -22 -35 -21 degrees QTc Int : 437 ms Sinus bradycardia Left axis deviation Right bundle branch block Abnormal ECG When compared with ECG of 10-APR-2024 02:17, Nonspecific T wave abnormality now evident in Lateral leads Referred By: Generic ED Physician Electronically Signed By:Atif Wolf
[2024-05-02 16:26] VITALS: BP 145/45; PULSE 52; RESP 16; TEMP 36.3; O2SAT 99; BMI 34.4
--- NOTE | 2024-05-02 16:26 | ED.CHESTPAIN ---
HPI - Chest Pain General Chief Complaint: Chest Pain Stated Complaint: chest pain Time Seen by Provider: 05/02/24 19:59 Source: patient Mode of arrival: ambulatory History of Present Illness ED Provider: Dr Rios HPI narrative: 68-year-old female who presents with history of hypertension as well as ongoing chest discomfort without associated dizziness/shortness of breath/nausea and otherwise denies any fever, chills, new cough, GI or symptoms. Related Data Home Medications ?Medication ?Instructions ?Recorded ?Confirmed losartan 25 mg tablet 25 mg PO DAILY 12/06/20 montelukast 10 mg tablet 10 mg PO BEDTIME 12/06/20 (Singulair) cyanocobalamin (vitamin B-12) 1,000 mcg PO QAM 01/09/21 1,000 mcg tablet ferrous sulfate 325 mg (65 mg 325 mg PO Q OTHER DAY 01/09/21 iron) tablet fluticasone propionate 50 intranasal 01/09/21 mcg/actuation nasal spray,suspension simvastatin 20 mg tablet 20 mg PO BEDTIME 01/09/21 loratadine 10 mg tablet 10 mg PO DAILY 03/21/21 hydroxyzine HCl 25 mg tablet 25 mg PO TID 08/01/22 losartan 50 mg tablet 50 mg PO DAILY 08/01/22 Previous Rx's ?Medication ?Instructions ?Recorded diclofenac sodium 1 % topical gel 4 g topical QID PRN for pain #100 02/23/23 grams fluticasone 250 mcg-salmeterol 50 1 inh inhalation Q12H 30 days #60 09/24/23 mcg/dose blistr powdr for ea inhalation (Advair Diskus) umeclidinium 62.5 mcg/actuation 1 inh inhalation DAILY COPD 30 09/24/23 blister powder for inhalation days #30 ea (Incruse Ellipta) albuterol sulfate 90 mcg/actuation 2 puff inhalation Q4-6H PRN 10/05/23 aerosol inhaler (Ventolin HFA) shortness of breath or wheezing 30 days #8.5 grams levalbuterol tartrate 45 2 puff inhalation Q4-6H PRN 11/03/23 mcg/actuation aerosol inhaler shortness of breath 30 days #15 grams bisacodyl 5 mg tablet,delayed 10 mg (2 x 5 mg) PO BEDTIME 2 days 01/20/24 release (Dulcolax (bisacodyl)) #4 tabs peg 3350-electrolytes 236 240 ml PO Q10M 1 day #4,000 mL 01/20/24 gram-22.74 gram-6.74 gram-5.86 gram solution (Golytely) tiotropium bromide 2.5 2 inh inhalation QAM COPD 30 days 02/15/24 mcg/actuation mist for inhalation #4 grams (Spiriva Respimat) lorazepam 0.5 mg tablet (Ativan) 0.5 mg PO TID PRN anxiety #10 tabs 04/10/24 Allergies Allergy/AdvReac Type Severity Reaction Status Date / Time lisinopril [LISINOPRIL] Allergy Unknown UNK Verified 05/02/24 16:27 Vistaril Allergy Unknown Nausea, Uncoded 09/24/23 13:36 upset stomach Review of Systems Review of Systems: Pertinent positives and negatives as stated in [facility] Past Medical History Source: nursing notes reviewed Medical History Allergic rhinitis Cough COPD (chronic obstructive pulmonary disease) Surgical History H/O colonoscopy History of cone biopsy of uterine cervix History of tubal ligation History of cholecystectomy Social History Social History Alcohol intake: never Patient Tobacco Use Status: Former Tobacco user Smoked in Last 30 Days: No Use of substances other than those prescribed or required for medical reasons: No Advance Directives: No Advance Directives Information Provided: No Physical Exam Vital Signs: Vital Signs: Last Vital Signs Temp 97 F 05/02/24 22:09 Pulse 47 L 05/02/24 22:09 Resp 15 05/02/24 22:09 BP 153/55 H 05/02/24 22:09 Pulse Ox 98 05/02/24 22:09 O2 Del Method Room Air 05/02/24 22:09 BMI result Body Mass Index 34.4 VITAL SIGNS: Reviewed. GENERAL: Well developed, well nourished, in no acute distress. HEAD: Normocephalic/atraumatic EYES: PERRLA, EOMI LUNGS: Normal breath sounds. No adventitious sounds or accessory muscle use. SpO2<99> CARDIOVASCULAR: Regular rate and rhythm without noted murmurs ABDOMEN: Soft, non-tender, non-distended with bowel sounds. MUSCULOSKELETAL: No tenderness, deformities, or effusions noted on gross inspection. EXTREMITIES: No cyanosis, clubbing or edema. SKIN: Inspection of the skin reveals no rashes NEUROLOGIC: Alert and oriented x 4. Strength and sensation to light touch were grossly intact x 4. Course Course Course Narrative: This is a rapid medical exam completed by Giancarlo INFANTEN: Additional HPI, ROS, PE not included below will be deferred to primary provider. Complaints of intermittent mid-sternal chest pain for greater than one month. She states the pain does not radiate. Medical Decision Making Medical Decision Making [facility] Narrative: 68-year-old female with history and clinical presentation, DDX: Musculoskeletal pain, lower clinical suspicion for cardiopulmonary etiology, also pain character does not appear to be consistent with acid reflux or GERD but patient also denies any abdominal discomfort/nausea/vomiting/fever or chills to suggest an infectious etiology. I reviewed all investigations and hematologic indices are negative for leukocytosis/left shift anemia/thrombocytopenia. Chemistries indices are grossly within normal limits without any obvious abnormalities, I sensitivity troponins are flat after 2 and there are no acute changes on EKG. I discussed all results and findings with the patient at bedside, also recommended that she follow-up with her primary care doctor and that she would be provided with a referral to follow-up with cardiology. Differential Diagnosis Differential Diagnoses: The differential diagnosis associated with the presentation includes Please see the discussion above Admission/Observation Consideration of admission/observation: Escalation of care including admission/observation considered Please see the discussion above Lab Data [facility] Lab Attestation statement: I reviewed the patient's lab results. Please see the discussion above 05/02/24 17:23 05/02/24 17:23 Labs: Lab Results 05/02/24 05/02/24 Range/Units 17:23 21:38 WBC 8.1 (4.8-10.8) X10*3/uL RBC 4.63 (4.20-5.50) X10*6/uL Hgb 12.2 (12.0-16.0) g/dl Hct 37.7 (37.0-47.0) % MCV 81.4 (80.0-98.0) fL MCH 26.3 L (27.0-33.0) pg MCHC 32.4 (31.0-35.0) g/dl RDW 15.2 (11.0-16.0) % Plt Count 267 (160-400) X10*3/uL MPV 11.6 (9.4-12.3) fL Immature Gran % (Auto) 0.5 H (0.0-0.4) % Neut % (Auto) 60.6 (45-73) % Lymph % (Auto) 27.4 (20-40) % [place] % (Auto) 9.6 (2-11) % Eos % (Auto) 0.9 (0-4) % Baso % (Auto) 1.0 (0-2) % Lymph # (Auto) 2.2 (1.2-4.9) X10*3/uL [place] # (Auto) 0.8 (0.1-1.2) X10*3/uL Eos # (Auto) 0.1 (0.0-0.4) X10*3/uL Baso # (Auto) 0.1 (0.0-0.2) X10*3/uL Abs Immat Gran (auto) 0.04 H (0.00-0.03) X10*3/uL Absolute Neuts (auto) 4.9 (2.0-8.3) x10*3/uL Absolute Nucleated RBC 0.000 (0.0-0.012) X10*3/uL Nucleated RBC % (auto) 0.0 (0.0-0.2) /100WBC Sodium 142 (135-145) mmol/L Potassium 4.2 (3.3-5.1) mmol/L Chloride 106 (96-108) mmol/L Carbon Dioxide 28 (22-29) mmol/L Anion Gap 12 (12-20) BUN 12 (9-16) mg/dL Creatinine 0.75 (0.5-1.4) mg/dL Estim Creat Clear Calc 77.4 Estimated GFR > 60 Random Glucose 90 (60-115) mg/dL Calcium 10.2 D (8.4-10.2) mg/dL Total Bilirubin 0.3 (0.0-1.0) mg/dL AST 20 (5-31) U/L ALT 18 (0-31) U/L Alkaline Phosphatase 67 (39-117) U/L Troponin I High Sens 10.1 10.6 (<3.5-17.0) ng/L Total Protein 7.9 (6.5-8.0) g/dL Albumin 4.2 (3.5-5.0) g/dL Independent Interpretation I performed an independent interpretation of an: EKG Interpretation: Sinus bradycardia, HR-52, RBBB at baseline, [place]/QTC is within External Record Review External record reviewed: Outpatient record, Prior outpatient labs and Prior outpatient radiology Chronic Conditions Patient?s care impacted by: Hypertension Critical Care Time Critical Care Time Critical Care Time: Yes Total Critical Care Time: 30 Attestation: I personally attest to this time spent taking care of the patient. Discharge Plan Discharge Clinical Impression: Chest pain Patient Disposition: Home, Self-Care Instructions: Chest Pain (ED) Additional Instructions: 1. Resume all home medications as prescribed 2. Call the referral for Cardiology in the morning to set up an appointment for re-evaluation further outpatient management. Also follow-up with primary care doctor. Return to the ER for any worsening of your symptoms. Prescriptions: No Action albuterol sulfate [Ventolin HFA] 90 mcg/actuation HFA aerosol inhaler 2 puff inhalation Q4-6H PRN (Reason: shortness of breath or wheezing) 30 Days Qty: 8.5 3RF levalbuterol tartrate 45 mcg/actuation HFA aerosol inhaler 2 puff inhalation Q4-6H PRN (Reason: shortness of breath) 30 Days Qty: 15 3RF peg 3350-electrolytes [Golytely] 236-22.74-6.74 -5.86 gram recon soln 240 ml PO Q10M 1 Days Qty: 4000 0RF Rx Instructions: until fecal effluent is clear; do not exceed a total volume of 2,000 mL bisacodyl [Dulcolax (bisacodyl)] 5 mg tablet,delayed release (DR/EC) 10 mg PO BEDTIME 2 Days Qty: 4 0RF Spiriva Respimat 2.5 mcg/actuation mist 2 inh inhalation QAM 30 Days Qty: 4 3RF lorazepam [Ativan] 0.5 mg tablet 0.5 mg PO TID PRN (Reason: anxiety) Qty: 10 0RF Rx Instructions: patient may ask for partial fill montelukast [Singulair] 10 mg tablet 10 mg PO BEDTIME losartan 25 mg tablet 25 mg PO DAILY fluticasone propionate 50 mcg/actuation spray,suspension intranasal simvastatin 20 mg tablet 20 mg PO BEDTIME ferrous sulfate 325 mg (65 mg iron) tablet 325 mg PO Q OTHER DAY cyanocobalamin (vitamin B-12) 1,000 mcg tablet 1,000 mcg PO QAM loratadine 10 mg tablet 10 mg PO DAILY losartan 50 mg tablet 50 mg PO DAILY hydroxyzine HCl 25 mg tablet 25 mg PO TID diclofenac sodium 1 % gel 4 g topical QID PRN (Reason: for pain) Qty: 100 3RF fluticasone propion-salmeterol [Advair Diskus] 250-50 mcg/dose blister with device 1 inh inhalation Q12H 30 Days Qty: 60 5RF Incruse Ellipta 62.5 mcg/actuation blister with device 1 inh inhalation DAILY 30 Days Qty: 30 5RF Referrals: Reggie Russo MD [Primary Care Provider] - Atif Wolf MD [Physician] - Print Language: Setswana
[2024-05-02 17:29] LABS: MANUAL DIFF FLAG NO
[2024-05-02 17:45] LABS: Alanine Aminotransferase 18 U/L (0-31); Albumin Level 4.2 g/dL (3.5-5.0); Alkaline Phosphatase 67 U/L (39-117); Anion Gap 12 (12-20); Aspartate Amino Transferase 20 U/L (5-31); Bilirubin Total 0.3 mg/dL (0.0-1.0); Blood Urea Nitrogen 12 mg/dL (9-16); Calcium 10.2 mg/dL (8.4-10.2); Carbon Dioxide 28 mmol/L (22-29); Chloride 106 mmol/L (96-108); Creatinine Clr Calc Pharmacy 77.4; Estimated Glomerular Filt Rate > 60; Glucose Random 90 mg/dL (60-115); Potassium 4.2 mmol/L (3.3-5.1); Sodium 142 mmol/L (135-145); Total Protein 7.9 g/dL (6.5-8.0)
[2024-05-02 17:48] LABS: Basophils Absolute Auto 0.1 X10*3/uL (0.0-0.2); Eosinophils Absolute Auto 0.1 X10*3/uL (0.0-0.4); Eosinophils Percent Auto 0.9 % (0-4); Hematocrit 37.7 % (37.0-47.0); Hemoglobin 12.2 g/dl (12.0-16.0); Imm Gran Abs Auto 0.04 X10*3/uL (0.00-0.03); Imm Gran Pct Auto 0.5 % (0.0-0.4); Lymphocytes Absolute Auto 2.2 X10*3/uL (1.2-4.9); Lymphocytes Percent Auto 27.4 % (20-40); Mean Corpuscular HGB Conc 32.4 g/dl (31.0-35.0); Mean Corpuscular Hemoglobin 26.3 pg (27.0-33.0); Mean Corpuscular Volume 81.4 fL (80.0-98.0); Mean Platelet Volume 11.6 fL (9.4-12.3); Monocytes Absolute Auto 0.8 X10*3/uL (0.1-1.2); Monocytes Percent Auto 9.6 % (2-11); Neutrophils Absolute Auto 4.9 x10*3/uL (2.0-8.3); Neutrophils Percent Auto 60.6 % (45-73); Platelet Count 267 X10*3/uL (160-400); Red Blood Count 4.63 X10*6/uL (4.20-5.50); Red Cell Distribution Width 15.2 % (11.0-16.0); White Blood Count 8.1 X10*3/uL (4.8-10.8)
[2024-05-02 17:52] LABS: Troponin-I High Sensitivity 10.1 ng/L (<3.5-17.0)
[2024-05-02 19:58] VITALS: BP 155/42; PULSE 48; RESP 12; TEMP 36.3; O2SAT 99
[2024-05-02 22:08] LABS: Troponin-I High Sensitivity 10.6 ng/L (<3.5-17.0)
[2024-05-02 22:09] VITALS: BP 153/55; PULSE 47; RESP 15; TEMP 36.1; O2SAT 98
[2024-05-02 22:54] VITALS: BP 170/56; PULSE 46; RESP 13; TEMP 36.8; O2SAT 97
== END 2024-05-02 22:55 | disposition home or self-care (01) ==
PROVIDERS: Nurse Practitioner Family; Emergency Provider Student in an Organized Health Care Education/Training Program; PCP Internal Medicine
DX: R07.89 Other chest pain (principal); Z79.899 Other long term (current) drug therapy
CPT/HCPCS: 36415; 80053; 84484; 85025; 93005; 99283; 99285

== ENCOUNTER → 2024-05-02 15:52 | Outpatient (BNV) | payer OTHER, SELFPAY | PROVIDERS: Emergency Provider Student in an Organized Health Care Education/Training Program; PCP Internal Medicine; Visit Provider Internal Medicine Cardiovascular Disease | DX: R07.9 Chest pain, unspecified (principal); R00.1 Bradycardia, unspecified; I45.10 Unspecified right bundle-branch block; R94.31 Abnormal electrocardiogram [ECG] [EKG] | CPT/HCPCS: 93010 ==

== ENCOUNTER 2024-06-13 15:18 | Outpatient (AMB) | payer OTHER, SELFPAY ==
[2024-06-13 15:28] VITALS: BP 152/62; PULSE 68; BMI 35.2
--- NOTE | 2024-06-13 15:28 | MHC.OFFVIS ---
Vital Signs 06/13/24 15:28 Height 5 ft 4 in Weight 205 lb 0.478 oz BMI 35.2 BP 152/62 H Blood Pressure Location Rt brachial Position Sitting Pulse 68 Pulse Source Pulse Oximeter Intake Visit Reasons: [facility] [place]/ 05-02/chest pain Sugar Chipper Machine Operator Required: Yes Sugar Chipper Machine Operator Language: Brand Protection Manager Services: Sugar Chipper Machine Operator Present Sugar Chipper Machine Operator Name: gricelda summers [id number] Allergies lisinopril [LISINOPRIL] Allergy (Unknown, Verified 06/13/24 15:32) UNK Vistaril Allergy (Unknown, Uncoded 06/13/24 15:32) Nausea, upset stomach Medication List - Last Reconciled 06/13/24 by LYNDSAY Mcgill albuterol sulfate 90 mcg/actuation (Ventolin HFA) 2 puffs inhalation Q4-6H PRN 30 days bisacodyl (Dulcolax (bisacodyl)) 10 mg (2 x 5 mg) PO BEDTIME 2 days cyanocobalamin (vitamin B-12) 1,000 mcg PO QAM diclofenac sodium 1% 4 grams topical QID PRN ferrous sulfate 325 mg PO Q OTHER DAY fluticasone propion-salmeterol 250-50 mcg/dose (Advair Diskus) 1 inh inhalation Q12H 30 days fluticasone propion-salmeterol 500-50 mcg/dose inhalation fluticasone propionate 50 mcg/actuation intranasal levalbuterol tartrate 45 mcg/actuation 2 puffs inhalation Q4-6H PRN 30 days loratadine 10 mg PO DAILY lorazepam (Ativan) 0.5 mg PO TID PRN losartan 100 mg PO DAILY montelukast (Singulair) 10 mg PO BEDTIME peg 3350-electrolytes 236-22.74-6.74 -5.86 gram (Golytely) 240 mL PO Q10M 1 day simvastatin 20 mg PO BEDTIME tiotropium bromide 2.5 mcg/actuation (Spiriva Respimat) 2 inhalations inhalation QAM 30 days HPI HPI [facility] [place]/ 05-02/chest pain: Details: Roxanne Patel is a 69-year-old female past medical history of hypertension, hyperlipidemia, COPD who was seen in the emergency room [phone] with chest discomfort. She ruled out for ACS. She was referred to Cardiology in follow-up. Today she presents for cardiology consultation. She says that she has been getting intermittent mid chest discomfort which occurs randomly. She has no symptoms clearly brought on by exertional activities. She has some shortness of breath which she relates to her asthma. No PND, orthopnea or edema. No lightheadedness, palpitations, presyncope, syncope, falls. Activity limited by knee arthritis. No cardiac history. No known family history of heart disease. Remote smoking. No alcohol use. Takes all meds as directed. [facility] Medical History Allergic rhinitis Cough COPD (chronic obstructive pulmonary disease) Surgical History H/O colonoscopy History of cone biopsy of uterine cervix History of tubal ligation History of cholecystectomy Social History Alcohol intake: never Patient Tobacco Use Status: Former Tobacco user Review of Systems Const All systems reviewed & are unremarkable except as noted in HPI and below ENT Denies dizziness Card Reports chest pain (on day of ED eval), Denies chest pain at rest, Denies chest pain with activity, Denies rapid heart rate, Denies pedal edema, Denies edema, Denies leg edema, Denies lightheadedness, Denies palpitations, Denies dyspnea, Reports dyspnea on exertion and Denies orthopnea Resp Denies cough, Denies dyspnea and Reports dyspnea on exertion GI Denies hematochezia and Denies change in stool character Musc Denies abnormal gait, Denies limited range of motion, Denies muscle cramps, Denies muscle weakness, Denies numbness, Denies radiating pain into limb, Denies stiffness and Denies tingling Neuro Denies abnormal gait, Denies dizziness, Denies numbness and Denies tingling Endo Denies palpitations Physical Exam Vital Signs: Last Vital Signs Pulse 68 06/13/24 15:28 BP 152/62 H 06/13/24 15:28 BMI result Body Mass Index 35.2 Const General: cooperative, healthy appearing, comfortable and no acute distress Orientation/consciousness: patient oriented x3 Neck Neck: Yes normal visual inspection and Yes no JVD Resp Effort & Inspection: normal respiratory effort Auscultation: clear to auscultation bilaterally, no crackles, no rales, no rhonchi and no wheezes Cardio Jugular venous distension: no JVD Rate: regular rate Rhythm: regular rhythm Heart sounds: S1 normal heart sound present, S2 normal heart sound present, no murmurs and no rubs Neuro General: patient oriented x3 Extrem General: Yes normal to inspection and No no pedal edema Psych Appearance: grossly normal Mental Status: mental status grossly normal Speech and movement: Normal speech and movement present Assessment & Plan Assessment & Plan (1) Chest discomfort: Code(s): R07.89 - Other chest pain Category: Medical Plan: Reports of mid chest discomfort occurring intermittently, random occurrence. No clear exertional symptoms. ER evaluation 05/02/2024 for this symptom without cardiac findings, normal troponins. Her EKG did show sinus Kvng with right bundle branch block, rate 52. Right bundle branch block is new occurring between EKGs done in 2017 and 03/2024. She has cardiac risk factors of hypertension, hyperlipidemia, age, obesity. Her symptom does not sound like angina. For further evaluation will evaluate an echocardiogram and nuclear stress test.- patient tells me she will be unable to do the nuclear stress test as she has significant claustrophobia. For this reason unable to perform a CTA of the coronary arteries as well. Will check the echocardiogram and determine if further testing is needed. Signs and symptoms of true angina reviewed. Emergency care if needed for concerning symptoms. Cardiology follow-up in 6-8 weeks, sooner if needed. (2) Hypertension: Code(s): I10 - Essential (primary) hypertension Category: Medical Plan: Mild elevation today, blood pressure 152/62. Recheck done by me 148/68. She reports some mild anxiety being at this office visit. Is on losartan 100 mg daily which she says she did take today. Will plan recheck of her blood pressure at follow-up visit. No med changes made at this time. (3) COPD (chronic obstructive pulmonary disease): Comment: This patient does have chronic obstructive pulmonary disease for the last many years. Currently doing well with meds : ADVAIR 250-50 ONE INH BID ( DOSE DECREASED TO 250-50 ) WILL CHANGE INCRUSE 2 SPIRIVA HANDIHALER, AND HOPE THAT THIS WOULD BE COVERED BY HER INSURANCE. ALBUTEROL HFA 2 PUFFS Q 4-6 HOURS P.R.N. Code(s): J44.9 - Chronic obstructive pulmonary disease, unspecified Category: Medical Plan: Follows with pulmonology. (4) Right bundle branch block: Code(s): I45.10 - Unspecified right bundle-branch block Category: Medical Plan: As above Plan Time spent on chart review, documentation, interview and assessment Orders: Orders CA echo transthoracic complete 06/13/24 I10 - Essential (primary) hypertension, I45.10 - Unspecified right bundle-branch block, R07.89 - Other chest pain Coding Level of Care Code New Pt Level 3 (78342) Diagnoses Chest discomfort R07.89 Hypertension I10 COPD (chronic obstructive pulmonary disease) J44.9 Right bundle branch block I45.10 Time Spent (min) 28
== END 2024-06-13 16:22 | disposition home or self-care (01) ==
PROVIDERS: PCP Internal Medicine; Visit Provider Nurse Practitioner Family
DX: R07.89 Other chest pain (principal); I10 Essential (primary) hypertension; J44.9 Chronic obstructive pulmonary disease, unspecified; I45.10 Unspecified right bundle-branch block
CPT/HCPCS: 99203

== ENCOUNTER → 2024-06-13 15:18 | Outpatient (BNVA) | payer OTHER, SELFPAY | PROVIDERS: PCP Internal Medicine; Visit Provider Nurse Practitioner Family | DX: I45.10 Unspecified right bundle-branch block (principal); I10 Essential (primary) hypertension; R07.89 Other chest pain; J44.9 Chronic obstructive pulmonary disease, unspecified | CPT/HCPCS: 99202 ==

== ENCOUNTER 2024-06-20 14:33 | Outpatient (AMB) | payer OTHER, SELFPAY ==
[2024-06-20 14:41] VITALS: BP 118/64; PULSE 56; O2SAT 98; BMI 35.0
--- NOTE | 2024-06-20 14:41 | MHC.OFFVIS ---
Vital Signs 06/20/24 14:41 Height 5 ft 4 in Weight 203 lb 14.841 oz BMI 35.0 BP 118/64 Blood Pressure Location Lt brachial Position Sitting Pulse 56 Pulse Source Pulse Oximeter Pulse Oximetry (%) 98 Oxygen Delivery Method Room Air Intake Visit Reasons: asthma Intake Note: pt is here for follow up and states the inhaler we prescribed did not get covered and needs alternative.Sprivia Respimat is what is not covered. Terminal Gauger Supervisor Required: No Allergies lisinopril [LISINOPRIL] Allergy (Unknown, Verified 06/20/24 15:07) UNK Vistaril Allergy (Unknown, Uncoded 06/20/24 15:07) Nausea, upset stomach Medication List - Last Reconciled 06/20/24 by Karen Ríos MD albuterol sulfate 90 mcg/actuation (Ventolin HFA) 2 puffs inhalation Q4-6H PRN 30 days bisacodyl (Dulcolax (bisacodyl)) 10 mg (2 x 5 mg) PO BEDTIME 2 days cyanocobalamin (vitamin B-12) 1,000 mcg PO QAM diclofenac sodium 1% 4 grams topical QID PRN ferrous sulfate 325 mg PO Q OTHER DAY fluticasone propion-salmeterol 250-50 mcg/dose (Advair Diskus) 1 inh inhalation BID fluticasone propionate 50 mcg/actuation intranasal levalbuterol tartrate 45 mcg/actuation 2 puffs inhalation Q4-6H PRN 30 days loratadine 10 mg PO DAILY lorazepam (Ativan) 0.5 mg PO TID PRN losartan 100 mg PO DAILY montelukast (Singulair) 10 mg PO BEDTIME peg 3350-electrolytes 236-22.74-6.74 -5.86 gram (Golytely) 240 mL PO Q10M 1 day simvastatin 20 mg PO BEDTIME tiotropium bromide 2.5 mcg/actuation (Spiriva Respimat) 2 inhalations inhalation QAM 30 days Do you need a note to return to daycare/school/sports/work: No HPI HPI asthma: Details: Cristal is 69 years old very pleasant female, comes for follow-up for her asthma/COPD. She claims that with fluticasone/salmeterol 500-51 inhalation b.i.d., her COPD is not well controlled. When she was using Incruse Ellipta along with that she used to feel better. Now Incruse Ellipta is not covered. I have prescribed Spiriva Respimat and that is also not being paid by insurance. She claims to have increased shortness of breath on walking and also more frequent bouts of cough. She also has frequent feeling of nasal congestion with postnasal discharge. COUNTS INCLUDE 234 BEDS AT THE [facility] Medical History Allergic rhinitis Cough COPD (chronic obstructive pulmonary disease) Surgical History H/O colonoscopy History of cone biopsy of uterine cervix History of tubal ligation History of cholecystectomy Social History Alcohol intake: never Patient Tobacco Use Status: Former Tobacco user Review of Systems Const All systems reviewed & are unremarkable except as noted in HPI and below Eyes Reports no additional complaints ENT Reports no additional complaints and Reports nasal congestion (Mild intermittent) Card Denies chest pain, Denies irregular heart rhythm and Reports leg edema Resp Reports as per HPI GI Reports no additional complaints Musc Reports back pain (MILD , MOSTLY ON THE RT SIDE ) Skin/Breast Reports system reviewed and no additional complaints, except as documented Neuro Reports no additional complaints Psych Reports no additional complaints Physical Exam Vital Signs: Last Vital Signs Pulse 56 06/20/24 14:41 BP 118/64 06/20/24 14:41 Pulse Ox 98 06/20/24 14:41 Oxygen Delivery Method Room Air 06/20/24 14:41 BMI result Body Mass Index 35.0 Const General: healthy appearing (Except for being overweight), comfortable, no acute distress, alert and awake Orientation/consciousness: patient oriented x3 HEENT Head: Yes normal to inspection General nose exam: No nasal polyps present, No nasal discharge present and Other nasal findings present (Mild nasal congestion) Face and sinus: Yes sinuses nontender Mouth: oropharynx normal Throat: Yes posterior oropharynx normal Eyes General: appearance normal, both eyes and all related structures Neck Neck: Yes normal visual inspection, Yes no lymphadenopathy, Yes trachea midline and Yes no JVD Thyroid: Thyroid normal Chest Chest palpation & inspection: normal inspection of the chest, normal palpation of entire chest wall and no tenderness Resp Other: Percussion note resonant, good breath sounds on both sides slightly distant, and prolonged expiratory phase. No wheezes rhonchi or crepitations are heard. Cardio Palpation: normal PMI Rate: regular rate Rhythm: regular rhythm Heart sounds: no gallops and no murmurs Peripheral pulses: Peripheral pulses 2+ throughout GI Palpation (GI): Soft to palpation, nontender, No hepatosplenomegaly present and no masses Auscultation: normal bowel sounds Back/Spine/Pelvis Thoracic/Lumbar Spine: thoracic and lumbar spine normal to inspection and thoraco-lumbar ROM limited Skin General skin exam: no rashes or lesions noted Neuro General: patient oriented x3 and no focal motor deficits Cranial nerves: Yes CN's II-XII intact bilaterally Extrem General: Yes normal to inspection, Yes no clubbing, cyanosis or edema and Yes no calf tenderness Psych Appearance: grossly normal and well kempt Speech and movement: Normal speech and movement present Assessment & Plan Assessment & Plan (1) COPD (chronic obstructive pulmonary disease): Comment: This patient does have chronic obstructive pulmonary disease for the last many years. Currently doing well with meds : ADVAIR (250-50 ) 1 inhalation b.i.d. Patient claims that she could not get Spiriva Respimat because this not covered by insurance. Just with Advair alone her symptoms are not well controlled. Code(s): J44.9 - Chronic obstructive pulmonary disease, unspecified Category: Medical Plan: Advised to continue Advair 250-51 inhalation b.i.d.. Spiriva HandiHaler is prescribed 1 inhalation daily. Continue using Ventolin 2 puffs Q 6 hours p.r.n. (2) Cough: Comment: Cough is mostly related to her COPD, and is down to minimal Code(s): R05 - Cough Category: Medical Plan: May use cough drops PRN (3) Allergic rhinitis: Comment: CHRONIC, WELL CONTROLLED. Code(s): J30.9 - Allergic rhinitis, unspecified Category: Medical Plan: [place] : CONTINUE MONTELUKAST 10 MG DAILY, LORATADINE 10 MG P.R.N., AND FLONASE 2 SPRAY EACH NOSTRIL DAILY Medications: New tiotropium bromide (Spiriva with HandiHaler) puncture 1 cap using device; one dose = 2 inhalations 1 cap inhalation DAILY 30 days 30 inhalations 5RF copd Coding Level of Care Code Est Pt Level 3 (79660) Diagnoses COPD (chronic obstructive pulmonary disease) J44.9 Cough R05 Allergic rhinitis J30.9
== END 2024-06-20 15:08 | disposition home or self-care (01) ==
PROVIDERS: PCP Internal Medicine; Visit Provider Internal Medicine
DX: J44.9 Chronic obstructive pulmonary disease, unspecified (principal); R05.9 Cough, unspecified; J30.9 Allergic rhinitis, unspecified
CPT/HCPCS: 99213

== ENCOUNTER → 2024-06-20 14:33 | Outpatient (BNVA) | payer OTHER, SELFPAY | PROVIDERS: PCP Internal Medicine; Visit Provider Internal Medicine | DX: J44.9 Chronic obstructive pulmonary disease, unspecified (principal); J30.9 Allergic rhinitis, unspecified; Z79.899 Other long term (current) drug therapy | CPT/HCPCS: 99212 ==

== ENCOUNTER 2024-06-24 13:15 | Outpatient (REF) | payer OTHER, SELFPAY ==
--- NOTE | ~2024-06-24 | XR_ITS ---
EXAMINATION: XR LUMBOSACRAL SPINE CLINICAL INFORMATION: Low back pain. COMPARISON: Lumbar spine x-rays of 02/07/2017. TECHNIQUE: Three views of the lumbosacral spine. FINDINGS: There are 5 lumbar-type ymt-gvc-ceancma vertebrae. Vertebral body heights are maintained. There is stable minimal grade 1 retrolisthesis of L1 over L2. Moderate disc space narrowing is noted at L5-S1 and L4-L5. Remainder of the disc spaces are preserved. Posterior elements appear intact. Facet arthropathy in the lower lumbar spine. Multilevel small marginal endplate osteophytes are noted. Mild lower thoracic spondylosis. No suspicious lytic or blastic osseous lesions. Scattered aortic calcifications. Right upper abdominal quadrant surgical clips related to prior cholecystectomy are again noted. Limited evaluation of the sacroiliac joints and visualized hip joints is unremarkable. Paraspinous soft tissues are unremarkable. Moderate stool burden in the visualized colon. XR/XR lumbar spine 2-3V IMPRESSION: Lumbar spondylosis, with probable mild interval worsening. Mild lower thoracic spondylosis. No evidence of acute compression fracture or suspicious osseous lesion.
--- NOTE | ~2024-06-24 | XR_ITS ---
EXAMINATION: XR HIP, RIGHT CLINICAL INFORMATION: Right hip pain. COMPARISON: Right hip x-rays of 04/04/2020. TECHNIQUE: Two views of the right hip. FINDINGS: Femoral head is well seated in the acetabulum. Hip joint space is preserved. Mild marginal osteophytic spurring is noted from the superior lateral margin of the acetabulum. Changes of enthesopathy are noted at the iliac spine, ischial tuberosity and greater trochanter. No suspicious lytic or blastic osseous lesions. Limited evaluation of the sacroiliac joint is unremarkable. No evidence of acute fracture or dislocation. Osseous mineralization is normal. XR/XR hip RT min 2V IMPRESSION: No acute fracture or dislocation in the right hip. Mild degenerative/arthritic changes in the right hip. Overall, there does not appear to be significant interval change in the appearance of the right hip compared to previous x-ray of 04/04/2020.
== END 2024-06-24 13:16 | disposition home or self-care (01) ==
LOC: HO.HHCX 13:15
PROVIDERS: Visit Provider Internal Medicine
DX: M54.50 Low back pain, unspecified (principal); M25.551 Pain in right hip
CPT/HCPCS: 72100; 73502

== ENCOUNTER 2024-06-28 13:01 | Outpatient (AMB) | payer OTHER, SELFPAY ==
--- NOTE | 2024-06-28 13:42 | MHC.OFFVIS ---
Intake Visit Reasons: OV- B/L knee pain last inj 02/11/24 Intake Note: Roxanne is a 69 year old female presents today for a follow up for her bilateral knee OA, last injection 02/11/24. Patient reports her last injection gave her about 3 + months of relief. She states she would like to repeat. Allergies lisinopril [LISINOPRIL] Allergy (Unknown, Verified 06/28/24 13:43) UNK Vistaril Allergy (Unknown, Uncoded 06/20/24 15:07) Nausea, upset stomach HPI HPI OV- B/L knee pain last inj 02/11/24: Details: 69-year-old female who presents in the office today for a follow-up of bilateral knee pain. I last saw the patient in the office on 02/11/24 when she received cortisone injections in the bilateral knees.? ? While in the office today, the patient reports the last injection gave her about three months of relief. She would like to repeat the injection in the office today. ? [facility] Medical History Allergic rhinitis Cough COPD (chronic obstructive pulmonary disease) Surgical History H/O colonoscopy History of cone biopsy of uterine cervix History of tubal ligation History of cholecystectomy Social History Alcohol intake: never Patient Tobacco Use Status: Former Tobacco user Review of Systems Const All systems reviewed & are unremarkable except as noted in HPI and below Physical Exam Const General: cooperative, healthy appearing and no acute distress Resp Effort & Inspection: normal respiratory effort and able to speak in complete sentences Cardio Rate: regular rate Peripheral pulses: Peripheral pulses 2+ throughout GI Palpation (GI): Soft to palpation Skin Lesions: no lesions Rashes: no rashes Extrem Other: Bilateral knees: Skin intact. No erythema or joint effusion. Full ROM with crepitus. Calf supple non tender. Office Procedures Joint Injection/Aspiration Joint Injection/Aspiration Primary Site: right knee Secondary Site: left knee Prep: site was prepped using aseptic technique, ethochloride spray was applied and injection warnings given Injected: 80 mg of, DepoMedrol, with 8 mL of (2% plain lido ) and in the joint Approach Used: anterolateral Procedure: The patient tolerated the procedure well, but had some pain with the injection and there was some relief with the local anesthesia Coding 38932 - Large joint Procedure code (CPT) selection complete Assessment & Plan Assessment & Plan (1) Osteoarthritis of right knee: Code(s): M17.11 - Unilateral primary osteoarthritis, right knee Category: Medical Qualifiers: Osteoarthritis type: unspecified Qualified Code(s): M17.11 - Unilateral primary osteoarthritis, right knee (2) Osteoarthritis of left knee: Code(s): M17.12 - Unilateral primary osteoarthritis, left knee Category: Medical Qualifiers: Osteoarthritis type: unspecified Qualified Code(s): M17.12 - Unilateral primary osteoarthritis, left knee Plan Ms. Jono Azul is a 69-year-old female who presents in the office today for a follow-up of bilateral knee pain. I last saw the patient in the office on 02/11/24 when she received cortisone injections in the bilateral knees.? ? While in the office today, the patient reports the last injection gave her about three months of relief. She would like to repeat the injection in the office today.? ? The patient was offered a cortisone injection in the bilateral knees with 80 mg of DepoMedrol. The patient was explained the risk, benefits, and alternatives to receiving this injection. After receiving consent for the injection, the patient had the procedure done while in the office today. The patient tolerated the procedure well with no complications.? ? Follow up will be PRN, or sooner if needed.? Patient Instructions: Scribed by marc Hall scribe, for Alena Chris PA-C on 06/28/2024 at 1:17 pm, EST.? Coding Level of Care Code Est Pt Level 3 (46065) Diagnoses Osteoarthritis of right knee, unspecified osteoarthritis type M17.11 Osteoarthritis type: unspecified Osteoarthritis of left knee, unspecified osteoarthritis type M17.12 Osteoarthritis type: unspecified CPT Codes Coding - Large joint: 47030 - Large joint ([id number])
== END 2024-06-28 14:00 | disposition home or self-care (01) ==
PROVIDERS: PCP Internal Medicine; Visit Provider Physician Assistant
DX: M17.0 Bilateral primary osteoarthritis of knee (principal)
CPT/HCPCS: 20610; 99213

== ENCOUNTER → 2024-06-28 13:01 | Outpatient (BNVA) | payer OTHER, SELFPAY | PROVIDERS: PCP Internal Medicine; Visit Provider Physician Assistant | DX: M17.0 Bilateral primary osteoarthritis of knee (principal) | CPT/HCPCS: 20610; 99212; J1010 ==

== ENCOUNTER → 2024-07-20 12:29 | Outpatient (REF) | payer OTHER, SELFPAY ==
--- NOTE | 2024-07-20 12:31 | CA_ITS ---
Transthoracic Echocardiogram Patient (Last, First, Middle): Roxanne Davis Delia Gender: Female Date of : 1955 Age: 69 Procedure Date: 07/20/2024 Procedure Type: Transthoracic Echocardiogram Location: OP Height: 162.56 cm Weight: 91.63 kg BSA: 1.96 m2 Heart Rate: bpm BP: 130 / 80 mmHg Two Needle Machine Operator: PAM Referring MD: Alejandra Her SENIOR QUALITY METHODS SPECIALIST-C Symptoms: R07.89 - Other chest pain Study Quality: Adequate ECG Rhythm: Sinus Conclusions: - The left ventricular systolic function is normal. The calculated ejection fraction is 62% by biplane method. - No obvious valvular pathology seen on this study. Findings Left Ventricle Normal left ventricular cavity size. There is mildly increased left ventricular wall thickness. The left ventricular systolic function is normal. The calculated ejection fraction is 62% by biplane method. There is no evidence of regional wall motion abnormalities. Evidence suggests grade I (mild) diastolic dysfunction. Right Ventricle Normal right ventricular cavity size and systolic function. Atria Both atria are normal in size. Aortic Valve There is a normal trileaflet aortic valve. There is no aortic valve stenosis. There is no aortic valve regurgitation. Mitral Valve The mitral valve appears normal. There is trace mitral valve regurgitation. There is no mitral valve stenosis. Pulmonic Valve The pulmonic valve is likely normal. Tricuspid Valve Normal tricuspid valve structure. There is trace tricuspid valve regurgitation. There is no evidence of pulmonary hypertension. Great Vessels The asc aorta is normal in size. Venous The inferior vena cava is normal in size and collapses greater than 50% with inspiration. Pericardium/Pleural There is no evidence of pericardial effusion. Prior Study Comparison No significant change compared to prior study dated: 09/11/2017. Recommendations, Care & Conclusions No obvious valvular pathology seen on this study. Measurements 2D Linear Measurements IVSd: 1.10 0.6-0.9/0.6-1.0 cm LVIDd: 4.98 3.9-5.3/4.2-5.9 cm LVIDd Index: 2.54 2.4-3.2/2.2-3.1 cm/m2 LVIDs: 3.28 2.0-3.6 cm LVPWd: 1.09 0.7-1.1 cm Ao Root: 2.60 2.1-3.5 cm LA Diam: 4.30 2.7-3.8/3.0-4.0 cm LAIDs Index: 2.19 1.5-2.3 cm/m2 LV Mass: 254.90 67-162/88-224 g LV Mass Index: 130.05 43-95/49-115 g/m2 LVOT Diam: 2.00 3.0+(-)1.3 cm 2D Systolic Function EF 4C: 65.20 >55% EF 2C: 59.00 >55% EF BiP: 62.00 >55% Mitral Valve MV VTI: 0.47 MV Pk Darius: 1.09 MV Mn Darius: 0.55 MV Pk Grad: 5.00 MV Mn Grad: 2.00 MV Pk E: 0.59 MV PK A: 0.91 MV Decel Time: 283.00 E/A: 0.70 E'Lateral: 5.55 E'Medial: 4.79 E/E' Med: 12.30 E/E' Lat: 10.60 PHT: 83.00 MVA PHT: 2.65 MVA Continuity: 1.93 Decel [place]: 2.09 Aortic Valve AoV Pk Darius: 1.83 AoV Pk Grad: 13.00 LVOT LVOT Pk Darius: 1.07 LVOT Mn Darius: 0.69 LVOT VTI: 0.29 LVOT Pk Grad: 5.00 LVOT Mn Grad: 2.00 LVOT Diam: 2.00 LVOT Area: 3.14 Diastolic Function MV Pk E: 0.59 MV Pk A: 0.91 E/A: 0.70 E'Medial: 4.79 E/E' Med: 12.30 E' Laterial: 5.55 E/E' Lat: 10.60 Right Ventricle TAPSE (mm): 30.00 TVS' Darius: 13.00 Tricuspid Valve TR Pk Darius: 2.25 TR Pk Grad: 20.00 RA Press: 3.00 RVSP: 23.00 Great Vessels Aorta Ao Root-2D: 2.60 2.0-3.7 cm Ao Asc: 3.00 2.1-3.4 cm Pulmonary Valve PV Pk Darius: 1.31 Peak PV Grad: 7.00 Updated in Other Vendor System with Status of Final Adrien Nicole MD electronically signed on 07/21/2024 11:23:01 AM with status of Final
== END ==
LOC: HO.CARD 12:29
PROVIDERS: PCP Internal Medicine; Visit Provider Nurse Practitioner Family
DX: R07.89 Other chest pain (principal); I10 Essential (primary) hypertension; I45.10 Unspecified right bundle-branch block
CPT/HCPCS: 93306

== ENCOUNTER → 2024-07-20 12:31 | Outpatient (BNV) | payer OTHER, SELFPAY | PROVIDERS: PCP Internal Medicine; Visit Provider Internal Medicine | DX: I51.89 Other ill-defined heart diseases (principal) | CPT/HCPCS: 93306 ==

== ENCOUNTER 2024-08-19 12:51 | Outpatient (AMB) | payer OTHER, SELFPAY ==
[2024-08-19 13:16] VITALS: BP 120/60; PULSE 60; BMI 35.9
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
== END 2024-08-19 14:02 | disposition home or self-care (01) ==
PROVIDERS: PCP Internal Medicine; Visit Provider Nurse Practitioner Family
DX: R07.89 Other chest pain (principal); I10 Essential (primary) hypertension; J44.9 Chronic obstructive pulmonary disease, unspecified; I45.10 Unspecified right bundle-branch block
CPT/HCPCS: 99214; G2211

== ENCOUNTER → 2024-08-19 12:51 | Outpatient (BNVA) | payer OTHER, SELFPAY | PROVIDERS: PCP Internal Medicine; Visit Provider Nurse Practitioner Family | DX: I10 Essential (primary) hypertension (principal); I45.10 Unspecified right bundle-branch block; J44.9 Chronic obstructive pulmonary disease, unspecified; E78.5 Hyperlipidemia, unspecified; R07.89 Other chest pain | CPT/HCPCS: 99212 ==

== ENCOUNTER 2024-08-22 11:24 | Outpatient (AMB) | payer OTHER, SELFPAY ==
[2024-08-22 11:35] VITALS: BP 118/78; PULSE 66; O2SAT 98; BMI 35.7
--- NOTE | 2024-08-22 11:35 | A.OFFVIS_ITS ---
Vital Signs 08/22/24 11:35 Height 5 ft 4 in Weight 208 lb BMI 35.7 BP 118/78 Blood Pressure Location Lt brachial Position Sitting Pulse 66 Pulse Source Pulse Oximeter Pulse Oximetry (%) 98 Oxygen Delivery Method Room Air Intake Visit Reasons: asthma Intake Note: pt is here for follow up and has been out of sprivia, not covered by insurance, Xopenex dries her throat, ventolin did the same thing. So she has only Advair, and not controlling her asthma. please make sure pharmacy is set to [facility]. Group Teacher Required: No Allergies lisinopril [LISINOPRIL] Allergy (Unknown, Verified 08/22/24 11:59) UNK Vistaril Allergy (Unknown, Uncoded 08/22/24 11:59) Nausea, upset stomach Medication List - Last Reconciled 08/22/24 by Karen Ríos MD bisacodyl (Dulcolax (bisacodyl)) 10 mg (2 x 5 mg) PO BEDTIME 2 days cyanocobalamin (vitamin B-12) 1,000 mcg PO QAM diclofenac sodium 1% 4 grams topical QID PRN ferrous sulfate 325 mg PO Q OTHER DAY fluticasone propion-salmeterol 250-50 mcg/dose (Advair Diskus) 1 inh inhalation BID fluticasone propionate 50 mcg/actuation intranasal loratadine 10 mg PO DAILY lorazepam (Ativan) 0.5 mg PO TID PRN losartan 100 mg PO DAILY montelukast (Singulair) 10 mg PO BEDTIME peg 3350-electrolytes 236-22.74-6.74 -5.86 gram (Golytely) 240 mL PO Q10M 1 day simvastatin 20 mg PO BEDTIME Do you need a note to return to daycare/school/sports/work: No HPI HPI asthma: Details: 69 YEARS OLD VERY PLEASANT FEMALE IS HERE FOR FOLLOW-UP FOR HER ASTHMA/COPD. SHE WAS DOING FAIRLY WELL UP UNTIL SOME OF HER PRESCRIPTIONS WERE NOT COVERED BY INSURANCE. IN ADDITION TO ADVAIR 250-50 SHE WAS ALSO USING INCRUSE ELLIPTA WHICH WAS HELP ING BUT NOW IS NOT COVERED BY INSURANCE, SIMILARLY SPIRIVA HANDIHALER IS THE POWDER FORM AND IT . CAUSES DRYNESS OF HER THROAT. SHE DOES HAVE THE NEBULIZER AT HOME BUT DOES NOT HAVE ANY SOLUTION TO USE IN THAT. SHE IS NOT ABLE TO USE VENTOLIN OR XOPENEX , BOTH OF THEM CAUSING DRYNESS OF THE THROAT . WHEN SHE IS NOT USING [place] AGENT SHE HAS INCREASED AMOUNT OF COUGH WITH WHEEZING AND SHORTNESS OF BREATH ON EXERTION. [facility] Medical History Allergic rhinitis Cough COPD (chronic obstructive pulmonary disease) Surgical History H/O colonoscopy History of cone biopsy of uterine cervix History of tubal ligation History of cholecystectomy Social History Alcohol intake: never Patient Tobacco Use Status: Former Tobacco user Review of Systems Const All systems reviewed & are unremarkable except as noted in HPI and below Eyes Reports no additional complaints ENT Reports no additional complaints and Reports nasal congestion (Mild intermittent) Card Denies chest pain, Denies irregular heart rhythm and Reports leg edema Resp Reports as per HPI GI Reports no additional complaints Musc Reports back pain (MILD , MOSTLY ON THE RT SIDE ) Skin/Breast Reports system reviewed and no additional complaints, except as documented Neuro Reports no additional complaints Psych Reports no additional complaints Physical Exam Vital Signs: Last Vital Signs Pulse 66 08/22/24 11:35 BP 118/78 08/22/24 11:35 Pulse Ox 98 08/22/24 11:35 Oxygen Delivery Method Room Air 08/22/24 11:35 BMI result Body Mass Index 35.7 Const General: healthy appearing (Except for being overweight), comfortable, no acute distress, alert and awake Orientation/consciousness: patient oriented x3 HEENT Head: Yes normal to inspection General nose exam: No nasal polyps present, No nasal discharge present and Other nasal findings present (Mild nasal congestion) Face and sinus: Yes sinuses nontender Mouth: oropharynx normal Throat: Yes posterior oropharynx normal Eyes General: appearance normal, both eyes and all related structures Neck Neck: Yes normal visual inspection, Yes no lymphadenopathy, Yes trachea midline and Yes no JVD Thyroid: Thyroid normal Chest Chest palpation & inspection: normal inspection of the chest, normal palpation of entire chest wall and no tenderness Resp Other: Percussion note resonant, good breath sounds on both sides slightly distant, and prolonged expiratory phase. No wheezes rhonchi or crepitations are heard. Cardio Palpation: normal PMI Rate: regular rate Rhythm: regular rhythm Heart sounds: no gallops and no murmurs Peripheral pulses: Peripheral pulses 2+ throughout GI Palpation (GI): Soft to palpation, nontender, No hepatosplenomegaly present and no masses Auscultation: normal bowel sounds Back/Spine/Pelvis Thoracic/Lumbar Spine: thoracic and lumbar spine normal to inspection and thoraco-lumbar ROM limited Skin General skin exam: no rashes or lesions noted Neuro General: patient oriented x3 and no focal motor deficits Cranial nerves: Yes CN's II-XII intact bilaterally Extrem General: Yes normal to inspection, Yes no clubbing, cyanosis or edema and Yes no calf tenderness Psych Appearance: grossly normal and well kempt Speech and movement: Normal speech and movement present Assessment & Plan Assessment & Plan (1) COPD (chronic obstructive pulmonary disease): Comment: This patient does have chronic obstructive pulmonary disease for the last many years. Was doing well with Meds , un till INCRUSE ELLIPTA not covered by insurance. Also complains of dryness of the throat when she uses Xopenex are Ventolin, looking for an alternative agent. Code(s): J44.9 - Chronic obstructive pulmonary disease, unspecified Category: Medical Plan: Advair 250-51 inhalation b.i.d.. Atrovent MDI 2 puffs Q 6 hours while awake. Albuterol solution 2.5 mg( 3 ml ) in the nebulizer Q 6 hours p.r.n.. (2) Allergic rhinitis: Comment: CHRONIC, WELL CONTROLLED. Code(s): J30.9 - Allergic rhinitis, unspecified Category: Medical Plan: Continue montelukast 10 mg daily Use cetirizine on loratadine 10 mg 1 tablet a day p.r.n. Medications: New ipratropium bromide 17 mcg/actuation (Atrovent HFA) 2 puffs inhalation TID 30 days 12.9 grams 4RF copd albuterol sulfate 2.5 mg (3 mL) inhalation Q4-6H 30 days PRN 180 mL 4RF shortness of breath or wheezing Coding Level of Care Code Est Pt Level 3 (25208) Diagnoses COPD (chronic obstructive pulmonary disease) J44.9 Allergic rhinitis J30.9
== END 2024-08-22 11:58 | disposition home or self-care (01) ==
PROVIDERS: PCP Internal Medicine; Visit Provider Internal Medicine
DX: J44.9 Chronic obstructive pulmonary disease, unspecified (principal); J30.9 Allergic rhinitis, unspecified
CPT/HCPCS: 99213

== ENCOUNTER → 2024-08-22 11:24 | Outpatient (BNVA) | payer OTHER, SELFPAY | PROVIDERS: PCP Internal Medicine; Visit Provider Internal Medicine | DX: J44.9 Chronic obstructive pulmonary disease, unspecified (principal); J30.9 Allergic rhinitis, unspecified | CPT/HCPCS: 99212 ==

== ENCOUNTER 2024-08-24 12:37 | Outpatient (REF) | payer OTHER, SELFPAY ==
--- NOTE | ~2024-08-24 | MM_ITS ---
EXAMINATION: MM SCREENING DIGITAL BREAST TOMOSYNTHESIS, BILATERAL CLINICAL INFORMATION: Screening. Asymptomatic. COMPARISON: Mammography: Comparison is made with available priors TECHNIQUE: Digital breast mammography with tomosynthesis is performed in both the craniocaudal and mediolateral oblique views along with computer-aided detection (CAD). FINDINGS: There are scattered areas of fibroglandular density (ACR BI-RADS breast composition Category b). There are no significant masses, abnormal calcifications, or other abnormalities. MM/MM tomosynthesis screening BI IMPRESSION: No mammographic evidence of malignancy. ASSESSMENT: BI-RADS BI-RADS 1 - Negative RECOMMENDATION: Routine annual mammography screening. 1 year F/U This examination should not preclude the clinical evaluation of a suspicious palpable abnormality. This patient's information was entered into a reminder system with a target due date for their next mammogram. Electronically signed by: Emma Helms DO 09/05/2024 05:58 PM EDT
== END 2024-08-24 12:38 | disposition home or self-care (01) ==
LOC: HO.MAMMO 12:37
PROVIDERS: PCP Internal Medicine; Visit Provider Internal Medicine
DX: Z12.31 Encounter for screening mammogram for malignant neoplasm of breast (principal)
CPT/HCPCS: 77063; 77067

== ENCOUNTER → 2024-08-24 13:00 | Outpatient (BNV) | payer OTHER, SELFPAY | PROVIDERS: PCP Internal Medicine; Visit Provider Internal Medicine | DX: Z12.31 Encounter for screening mammogram for malignant neoplasm of breast (principal) | CPT/HCPCS: 77063; 77067 ==

== ENCOUNTER 2024-10-20 14:29 | Outpatient (AMB) | payer OTHER, SELFPAY ==
--- NOTE | 2024-10-20 15:13 | MHC.OFFVIS ---
Intake Visit Reasons: OV - B/L knee OA, last inj 06/28/24 Intake Note: Roxanne is a 69 year old female who presents today for a follow up for her bilateral knee OA, last injection 06/28/24. Patient reports he last injection gave her about 3 - 4 months of relief and would like to repeat. Patient also informed me that she is having pain posterior aspect of the left knee and on top of her left foot for 3 days with no hx of injury. Allergies lisinopril [LISINOPRIL] Allergy (Unknown, Verified 10/20/24 15:17) UNK Vistaril Allergy (Unknown, Uncoded 08/22/24 11:59) Nausea, upset stomach HPI HPI OV - B/L knee OA, last inj 06/28/24: Details: 69-year-old female who presents in the office today for bilateral knee pain. I last saw the patient in the office on 06/28/24 when she was given a cortisone injection in the bilateral knees. While in the office today, the patient reports that his last cortisone injection in the bilateral knee provided her with 3-4 months of relief. She would like to have a repeat injection today. The patient also reports experiencing pain on the posterior aspect of the left knee and on top of her left foot that has been ongoing for the past 3 days. She denies any history of injury. [facility] Medical History Allergic rhinitis Cough COPD (chronic obstructive pulmonary disease) Surgical History H/O colonoscopy History of cone biopsy of uterine cervix History of tubal ligation History of cholecystectomy Social History Alcohol intake: never Patient Tobacco Use Status: Former Tobacco user Review of Systems Const All systems reviewed & are unremarkable except as noted in HPI and below Physical Exam Const General: cooperative, healthy appearing and no acute distress Resp Effort & Inspection: normal respiratory effort and able to speak in complete sentences Cardio Rate: regular rate Peripheral pulses: Peripheral pulses 2+ throughout GI Palpation (GI): Soft to palpation Skin Lesions: no lesions Rashes: no rashes Extrem Other: Bilateral knees: Skin intact. No erythema or joint effusion. Full ROM with crepitus. Calf supple non tender. Office Procedures AMB Joint Injection/Aspiration Joint Injection/Aspiration Primary Site: right knee Secondary Site: left knee Prep: site was prepped using aseptic technique, ethochloride spray was applied and injection warnings given Injected: 80 mg of, DepoMedrol, with 8 mL of (2% plain lido ) and in the joint Approach Used: anterolateral Procedure: The patient tolerated the procedure well, but had some pain with the injection and there was some relief with the local anesthesia Coding 36824 - Large joint Procedure code (CPT) selection complete Assessment & Plan Assessment & Plan (1) Osteoarthritis of right knee: Code(s): M17.11 - Unilateral primary osteoarthritis, right knee Category: Medical Qualifiers: Osteoarthritis type: unspecified Qualified Code(s): M17.11 - Unilateral primary osteoarthritis, right knee (2) Osteoarthritis of left knee: Code(s): M17.12 - Unilateral primary osteoarthritis, left knee Category: Medical Qualifiers: Osteoarthritis type: unspecified Qualified Code(s): M17.12 - Unilateral primary osteoarthritis, left knee Plan Ms. Jono Azul is a 69-year-old female who presents in the office today for bilateral knee pain. I last saw the patient in the office on 06/28/24 when she was given a cortisone injection in the bilateral knees. While in the office today, the patient reports that his last cortisone injection in the bilateral knee provided her with 3-4 months of relief. She would like to have a repeat injection today. The patient also reports experiencing pain on the posterior aspect of the left knee and on top of her left foot that has been ongoing for the past 3 days. She denies any history of injury. The patient was offered a cortisone injection in the bilateral knees with 80 mg of Depo-Medrol. The patient was explained the risks, benefits, and alternatives to receiving this injection. After receiving consent for the injection, the patient had the procedure done while in the office today. The patient tolerated the procedure well with no complication. Patient Instructions: Scribed by Kiara Cardoso medical radiation therapist, for Alena Chris PA-C on 10/20/24 at 4:07 pm EST. Coding Level of Care Code Est Pt Level 3 (49109) Diagnoses Osteoarthritis of right knee, unspecified osteoarthritis type M17.11 Osteoarthritis type: unspecified Osteoarthritis of left knee, unspecified osteoarthritis type M17.12 Osteoarthritis type: unspecified CPT Codes Coding - 72955 Large joint: 81811 - Large joint ([id number])
== END 2024-10-20 15:35 | disposition home or self-care (01) ==
PROVIDERS: PCP Internal Medicine; Visit Provider Physician Assistant
DX: M17.0 Bilateral primary osteoarthritis of knee (principal)
CPT/HCPCS: 20610; 99213

== ENCOUNTER → 2024-10-20 14:29 | Outpatient (BNVA) | payer OTHER, SELFPAY | PROVIDERS: PCP Internal Medicine; Visit Provider Physician Assistant | DX: M17.0 Bilateral primary osteoarthritis of knee (principal) | CPT/HCPCS: 20610; 99212; J1010; J2003 ==

== ENCOUNTER 2025-01-20 09:46 | Outpatient (AMB) | payer OTHER, SELFPAY ==
--- NOTE | 2025-01-20 09:57 | MHC.OFFVIS ---
Vital Signs 01/20/25 09:58 Height 5 ft 4 in Weight 208 lb BMI 35.7 Intake Visit Reasons: B/L knee Cortisone Inj, last inj 10/20/24 Intake Note: Roxanne is a 69 year old female who presents today for a follow up for her bilateral knee OA, last injection 10/20/24. Patient reports her last injection gave her relief and would like to repeat. Allergies lisinopril [LISINOPRIL] Allergy (Unknown, Verified 01/20/25 09:57) UNK Vistaril Allergy (Unknown, Uncoded 08/22/24 11:59) Nausea, upset stomach HPI HPI B/L knee Cortisone Inj, last inj 10/20/24: Details: Patient presents to the office today for repeat bilateral knee cortisone injections. Last cortisone injection was 10/20/2024. PFSH Medical History Allergic rhinitis Cough COPD (chronic obstructive pulmonary disease) Surgical History H/O colonoscopy History of cone biopsy of uterine cervix History of tubal ligation History of cholecystectomy Social History Alcohol intake: never Patient Tobacco Use Status: Former Tobacco user Review of Systems Const All systems reviewed & are unremarkable except as noted in HPI and below Physical Exam Vital Signs: BMI result Body Mass Index 35.7 Const General: cooperative, healthy appearing and no acute distress Resp Effort & Inspection: normal respiratory effort and able to speak in complete sentences Cardio Rate: regular rate Peripheral pulses: Peripheral pulses 2+ throughout GI Palpation (GI): Soft to palpation Skin Lesions: no lesions Rashes: no rashes Extrem Other: Bilateral knees: Skin intact. No erythema or joint effusion. Full ROM with crepitus. Calf supple non tender. Office Procedures AMB Joint Injection/Aspiration Joint Injection/Aspiration Primary Site: right knee Secondary Site: left knee Prep: site was prepped using aseptic technique, ethochloride spray was applied and injection warnings given Injected: 80 mg of, DepoMedrol, with 8 mL of (2% plain lido ) and in the joint Approach Used: anterolateral Procedure: The patient tolerated the procedure well, but had some pain with the injection and there was some relief with the local anesthesia Coding 85114 - Large joint Procedure code (CPT) selection complete Assessment & Plan Assessment & Plan (1) Osteoarthritis of right knee: Code(s): M17.11 - Unilateral primary osteoarthritis, right knee Category: Medical Qualifiers: Osteoarthritis type: unspecified Qualified Code(s): M17.11 - Unilateral primary osteoarthritis, right knee (2) Osteoarthritis of left knee: Code(s): M17.12 - Unilateral primary osteoarthritis, left knee Category: Medical Qualifiers: Osteoarthritis type: unspecified Qualified Code(s): M17.12 - Unilateral primary osteoarthritis, left knee Plan The patient was offered a cortisone injection in bilateral knees with 80 mg of DepoMedrol. The patient was explained the risks, benefits, and alternatives to receiving this injection. After receiving consent for the injection, the patient had the procedure done while in the office today. The patient tolerated the procedure well with no complications. Follow-up will be p.r.n., or sooner if needed Coding Level of Care Code Est Pt Level 3 (02019) Diagnoses Osteoarthritis of right knee, unspecified osteoarthritis type M17.11 Osteoarthritis type: unspecified Osteoarthritis of left knee, unspecified osteoarthritis type M17.12 Osteoarthritis type: unspecified CPT Codes Coding - Large joint: 31827 - Large joint ([id number])
[2025-01-20 09:58] VITALS: BMI 35.7
--- OUTSIDE RECORDS SUMMARY | 2025-01-20 10:42 | XMS_ITS | Encounter Summary ---
Author Organization [employer] Address [address] [place] [address] [address] [place] [address] Care Team Providers Care Financial Compliance Examiner Name Role Phone Reggie Zuniga MD Primary Care Provide r Encounter Details Date Type Department Care Team ([facility] st Contact Info) Description 11/24/2022 Orders Only [facility] MED & PEDS [address] [place], [place] [phone] Malu Helm LPN Social History Tobacco Use Types Packs/Day Years Used Date Smoking Tobacco: Never Assessed Comments Unknown Sex and Gender Information Value Date Recorded Sex Assigned at Female 09/15/2022 10:15 AM EDT Legal Sex Female 10:15 AM EDT Gender Identity Female 09/15/2022 10:15 AM EDT Sexual Orientation Straight 09/15/2022 10 :15 AM EDT documented as of this encounter Plan of Treatment Not on file documented as of this encounter Visit Diagnoses Not on filedocumented in this encounter Care Teams Financial Compliance Examiner Relationship Specialty Start Date End Date Reggie Zuniga MD [address] [place] [id number] PCP - General Internal Medicine 06/25/17 documented as of this encounter
--- OUTSIDE RECORDS SUMMARY | 2025-01-20 10:42 | XMS_ITS | Encounter Summary ---
Author Organization [facility] Address [address] [place] [address] [address] [place] [address] Care Team Providers Care Electrical Engineering Draftsperson Name Role Phone Reggie Zuniga MD Primary Care Provide r Encounter Details Date Type Department Care Team (Late st Contact Info) Description 03/05/2023 Orders Only [facility] MEDICINE [address] [place], [place] [phone] Stefanie King LPN Social History Tobacco Use Types Packs/Day [...] on filedocumented in this encounter Care Teams Electrical Engineering Draftsperson Relationship Specialty Start Date End Date Reggie Zuniga MD [address] [place], [place] [phone] PCP - General Internal Medicine 06/25/17 documented as of this encounter
--- OUTSIDE RECORDS SUMMARY | 2025-01-20 10:42 | XMS_ITS | Encounter Summary ---
Author Organization [facility] Address [address] [place] [address] [address] [place] [address] Care Team Providers Care Harvester Operator Name Role Phone Reggie Zuniga MD Primary Care Provide r Encounter Details Date Type Department Care Team (Late st Contact Info) Description 04/23/2023 Orders Only [facility] MEDICINE [address] [place], [place] [phone] Stefanie King LPN Social History Tobacco Use [...] on filedocumented in this encounter Care Teams Harvester Operator Relationship Specialty Start Date End Date Reggie Zuniga MD [address] [place], [place] [phone] PCP - General Internal Medicine 06/25/17 documented as of this encounter
--- OUTSIDE RECORDS SUMMARY | 2025-01-20 10:42 | XMS_ITS | Encounter Summary ---
Author Organization [employer] Address [address] [place] [address] [address] [place] [address] Care Team Providers Care Flatwork Catcher Name Role Phone Reggie Zuniga MD Primary Care Provide r Encounter Details Date Type Department Care Team ([facility] st Contact Info) Description 02/25/2023 Orders Only [facility] MED & PEDS [address] [place], [place] [phone] Malu Helm LPN Social History Tobacco Use [...] on filedocumented in this encounter Care Teams Flatwork Catcher Relationship Specialty Start Date End Date Reggie Zuniga MD [address] [place] [phone] PCP - General Internal Medicine 06/25/17 documented as of this encounter
--- OUTSIDE RECORDS SUMMARY | 2025-01-20 10:42 | XMS_ITS | Encounter Summary ---
Author Organization [employer] Address [address] [place] [address] [address] [place] [address] Care Team Providers Care Barge Worker Name Role Phone Reggie Zuniga MD Primary Care Provide r Encounter Details Date Type Department Care Team ([facility] st Contact Info) Description 01/07/2023 Orders Only [facility] MED & PEDS [address] [place], [place] [phone] Malu Helm LPN Social History Tobacco Use [...] on filedocumented in this encounter Care Teams Barge Worker Relationship Specialty Start Date End Date Reggie Zuniga MD [address] [place] [phone] PCP - General Internal Medicine 06/25/17 documented as of this encounter
--- OUTSIDE RECORDS SUMMARY | 2025-01-20 10:42 | XMS_ITS | Clinical Summary ---
Author Organization [employer] Address [address] [place] [address] 7[address] [place] [address] Care Team Providers Care Emergency Room Physician Assistant Name Role Phone Reggie Zuniga MD Primary Care Provide r Allergies Active Allergy Reactions Criticality Noted Date Comments Amoxicillin Vomiting 09/07/2018 Benzonatate 02/24/2019 Lisinopril Swelling 08/13/2017 Medications albuterol (Proventil HFA) 108 (90 Base) MCG/ACT inhalerIndicatio ns:Mild intermittent asthma without complication Inhale 2 puffs by mouth every 4 to 6 hours as needed 6.7 g 3 3 Active Blood Pressure Monitoring (B-D ASSURE BPM/AUTO ARM CUFF) miscIndications: Essential hypertension 1 each Once daily. 1 each 3 Active fluticasone (Flonase) 50 MCG/ACT nasal sprayIndications :Seasonal allergies USE 2 SPRAYS IN EACH NOSTRIL EVERY MORNING 48 g 3 Active hydrOXYzine HCl (Atarax) 25 MG tablet TAKE 1 TABLET BY MOUTH THREE TIMES DAILY NEEDED 30 tablet 3 3 Active Additional Information Patient not taking.Reported on 06/21/2024 loratadine (Claritin) 10 MG tabletIndication s:Seasonal allergies TAKE 1 TABLET BY MOUTH EVERY MORNING 90 tablet 4 Active montelukast (Singulair) 10 MG tabletIndication s:Mild intermittent asthma without complication TAKE 1 TABLET BY MOUTH EVERY MORNING 90 tablet 1 4 Active ferrous sulfate (FeroSul) 325 (65 Fe) MG tabletIndication s:Iron deficiency TAKE 1 TABLET BY MOUTH EVERY OTHER DAY IN THE MORNING 45 tablet 1 4 Active simvastatin (Zocor) 20 MG tablet TAKE 1 TABLET BY MOUTH EVERY EVENING 90 tablet 1 4 Active losartan (Cozaar) 100 MG tabletIndication s:Primary hypertension TAKE 1 TABLET BY MOUTH EVERY MORNING 30 tablet 11 4 Active Fluticasone-Salm eterol 500-50 MCG/ACT aerosol powder INHALE 1 PUFF BY MOUTH TWICE DAILY RINSE MOUTH AFTER USING. 60 each 5 5 Active sertraline (Zoloft) 25 MG tabletIndication s:Mild episode of recurrent major depressive disorder (CMS/HCC) TAKE 1 TABLET BY MOUTH EVERY MORNING 30 tablet 5 5 Active cyanocobalamin (Vitamin B-12) 1000 MCG tabletIndication s:Low vitamin B12 level TAKE 1 TABLET BY MOUTH EVERY MORNING 90 tablet 5 Active Active Problems Problem Noted Date Diagnosed Date Precordial pain 06/21/2024 Assessment & Plan (06/21/2024 11:02 AM EDT): Pt here for a follow up, seen on the ER for evaluation on 05/02/2024 c/o chest pain, normal troponins.EKG did show sinus Kvng with right bundle branch block, rate 52. Right bundle branch block is new. cardiac risk factors of hypertension, hyperlipidemia, age, obesity. Seen by Cardiology 06/13/2024 who recommended an Echocardiogram and nuclear stress test. patient told them she would be unable to do the nuclear stress test and or CTA due to significant claustrophobia. Cardiology provider stated they would check the echocardiogram and determine if further testing is needed. Acute low back pain 06/21/2024 Assessment & Plan (06/21/2024 11:11 AM EDT): Pt with c/o right sided low back pain x 2 weeks. Pt reports a hx of a fall long time ago, now using a cane for instablility Plan: Plain films LS spine and right hip PT evaluation Preventative health care 11/03/2023 Assessment & Plan (06/21/2024 11:08 AM EDT): Mammogram: 08/19/2023 Pap Smear: 10/14/2017 Colonoscopy: 08/03/2012, referred for repeat, does not want to do it. Agrees to do Cologuard Vaccines: Dexa scan: Assessment & Plan (11/03/2023 10:51 AM EST): Mammogram: 08/19/2023 Pap Smear: 10/14/2017 Colonoscopy: 08/03/2012, referred for repeat Vaccines: Dexa scan: Anemia 06/09/2023 Low vitamin D level 06/09/2023 Other fatigue 05/21/2023 Assessment & Plan (05/21/2023 2:08 PM EDT): I ordered labs including CBC to monitor hgb in light patient has h/o anemia I advise to stay cold in this hot weather and maintain hydration I advise not to skip mels I will contact patient with lab results F/u with PCP Primary hypertension 05/21/2023 Assessment & Plan (06/21/2024 11:03 AM EDT): Pt here for a f/u BP controlled on a regimen of: Losartan 100 mg po daily She has checked her BP at home ( Amlodipine was discontinued due to LE edema) Pt tells me Lisinopril caused her swelling HCTZ 25 mg po daily ( started by Cardiology ) was stopped due to Hypokalemia. Plan:Continue current regimen f/u 4 months Most recent electrolytes, Bun and Creatinine done on: 05/02/2024 were within normal limits. patient advised to adhere to a low sodium diet, encouraged about medication compliance, counseled about weight loss. Assessment & Plan (11/03/2023 10:40 AM EST): Pt here for a f/u BP uncontrolled on a regimen of: Losartan 50 mg po daily She has checked her BP at home ( Amlodipine was discontinued due to LE edema) Pt tells me Lisinopril caused her swelling HCTZ 25 mg po daily ( started by Cardiology ) was stopped due to Hypokalemia. Plan: Increase Losartan to 100 mg po daily f/u 4 months Most recent electrolytes, Bun and Creatinine done on: 06/11/2022 were within normal limits. Today will order a repeat patient advised to adhere to a low sodium diet, encouraged about medication compliance, counseled about weight loss. Assessment & Plan (05/21/2023 2:06 PM EDT): - Aerobic exercise to reduce BP. Initial goal of 30 min walk 3-5x/week. Increase as tolerated. - low-sodium diet (goal: <2g/day) and heart healthy diet such as DASH to reduce BP and prevent ASCVD. - Home BP monitoring 1-2 x day with goal of <140/90. - Seek immediate medical attention for chest pain, palpitations, SOB, syncope, or sudden changes in mental status. - Do not change or discontinue current prescriptions without first consulting health care provider -Today BP in the high side patient agreed to monitor her BP at home and report back to PCP, patient has upcoming appointment Hypokalemia 05/27/2018 Chronic obstructive lung disease 2018 Assessment & Plan (06/21/2024 10:58 AM EDT): Under the care of Dr. Ríos No recent exacerbation Last seen 06/20/2024 Currently on a regimen of Incruse , Advair 500/50 1 puff BID , Spriviva, Singulair 10 mg po daily and Proair. Assessment & Plan (11/03/2023 10:41 AM EST): Under the care of Dr. Ríos No recent exacerbation Last seen 03/21/2021 Currently on a regimen of Incruse , Advair 500/50 1 puff BID , Singulair 10 mg po daily and Proair. Mixed stress and urge urinary incontinence 01/05 Obesity 07/12/2012 Hyperlipidemia 11/16/1959 Mixed anxiety and depressive disorder 11/16/1959 Encounters Date Type Department Care Team Description 12/19/2024 Refill [facility] [address] [place] [address] Reggie Zuniga MD Low vitamin B12 level 11/27/2024 Refill [facility] [address] [place] [address] Reggie Zuniga MD Mild episode of recurrent major depressive disorder ([facility]/HCC) 11/07/2024 Refill [facility] [address] [place] [address] Johnathon Reed, AbdielD Primary hypertension 11/04/2024 Refill [facility] [address] [place] [address] Reggie Zuniga MD Primary hypertension from Last 3 Months Immunizations Name Administration Dates Next Due Hep B, adult 08/22/2004,03/15/2004,01/16/2004 Influenza High-dose Quadriva lent Preservative Free 08/26/2022 Influenza injectable quadriv alent IIV4 with preservative 09/07/2018,09/11/2016 Influenza injectable quadriv alent preservative free 10/11/2019,11/05/2015,12/28/2014 Influenza, IIV3, injectable 01/12/2012 Influenza, Split (incl. kingsley fied surface antigen) 09/09/2013,07/26/2012 Influenza, seasonal, injecta ble, preservative free 08/22/2017 Pneumococcal Polysaccharide PPSV23 09/10/2017, TD (adult), 2 Lf tetanus tox oid, preservative free, adsorbed 03/14/1996 Tdap 07/31/2010 Zoster, Recombinant 09/21/2020,07/19/2020 Zoster, live 11/05/2015 Social History Tobacco Use Types Packs/Day Years Used Date Smoking Tobacco: Never Passive Smoke Exposure: Never Smokeless Tobacco: Never Tobacco Cessation:Counseling Given: Not Answered Alcohol Use Standard Drinks/Week Comments Never 0 (1 standard drink = 0.6 oz pur e alcohol) Depression Answer Date Recorded Patient Health Questionnaire-9 Score 0 06/21/2024 Patient Health Questionnaire-9 Score 0 06/21/2024 Last PHQ-9: Questionnaire Data Not on file 0 06/21/2024 Housing Stability Answer Date Recorded What is your housing situation today? I have aby amelia 06/21/[address] you li ve. Do you have problems with any of the following? None of the above 06/21/2024 Food Insecurity Answer Date Recorded Within the past 12 months, y ou worried that your food would run out before you got money to buy more: Never True 06/21/2024 Within the past 12 months,th e food you bought just didn't last and you didn't have enough money to get more: Never True 04/2024 Transportation Answer Date Recorded In the past 12 months, has l ack of transportation kept you from medical appts, meetings, work or from getting things needed for daily living? No 06/21/2024 Utilities Answer Date Recorded In the past 12 months, has t he electric, gas, oil or water company threatened to shut off services in your home? No 06/21/2024 Depression Answer Date Recorded Patient Health Questionnaire-2 Score 0 06/21/2024 Internet Access Answer Date Recorded Internet Access Q1 Yes 07/18/2024 Internet Access Q2 Not on file 07/18/2024 Comments Unknown Sex and Gender Information Value Date Recorded Sex Assigned at Female 09/15/2022 10:15 AM EDT Legal Sex Female 10:15 AM EDT Gender Identity Female 09/15/2022 10:15 AM EDT Sexual Orientation Straight 09/15/2022 10 :15 AM EDT Last Filed Vital Signs Vital Sign Reading Time Taken Comments Blood Pressure 140/69 06/21/2024 10:36 AM EDT Pulse 60 06/21/2024 10:36 AM EDT Temperature 35.9 ??C (96.7 ??F) 06/21/2024 10:36 AM E DT Respiratory Rate 20 06/21/2024 10:36 AM EDT Oxygen Saturation 97% 06/21/2024 10:36 AM EDT Inhaled Oxygen Concentration - - Weight 93.1 kg (205 lb 3.2 oz) 06/21/2024 10:36 AM EDT Height 162.6 cm (5' 4 ) 06/21/2024 10:36 AM EDT Body Mass Index 35.22 06/21/2024 10:36 AM EDT Plan of Treatment Health Maintenance Due Date Last Done Comments CT Colonography 1955 Colonoscopy 1955 Colorectal Cancer Screening 1955 FIT DNA/Cologuard 1954 FIT 1954 FOBT 1955 Sigmoidoscopy 1955 Alcohol/Substance Use Screening 1966 RSV Patients and Patients Aged 60 years or older (1 - Risk 60-74 years 1-dose series) 2014 Pneumococcal Vaccine: 50+ Years (2 of 2 - PCV) 09/10/2018 09/10/2017, 12/27/2015 DTaP/Tdap/Td Vaccines (2 - Td or Tdap) 07/31/2020 07/31/2010, 03/14/1996 COVID-19 Vaccine (3 - season) 2024 03/07/2021, 01/24/2021 Influenza Vaccine (#1) 2024 , 10/11/2019, 09/07/2018, Additional history exists Depression Screening 06/21/2025 06/21/2024, 06/21/20 24 SDOH Screening 06/21/2025 06/21/2024 Tobacco Screening 06/21/2025 06/21/2024 Mammogram 08/24/2025 08/24/2024, 02/2023, 07/24/2022, Additional history exists Lipid Panel 05/30/2026 05/30/2021 Hepatitis B Vaccines Completed 08/22/2004, 03/15/2004, 01/16/2004 Zoster Vaccines Completed 09/21/2020, 01/2020, 11/05/2015 Hepatitis C Screening Completed 06/02/2023 HIB Vaccines Aged Out No longer eligi ble based on patient's age to complete this topic HPV Vaccines Aged Out No longer eligi ble based on patient's age to complete this topic Hepatitis A Vaccines Aged Out No long er eligible based on patient's age to complete this topic IPV Vaccines Aged Out No longer eligi ble based on patient's age to complete this topic Meningococcal Vaccine Aged Out No luis susana eligible based on patient's age to complete this topic RSV under 20 months Aged Out No longe r eligible based on patient's age to complete this topic Rotavirus Vaccines Aged Out No longer eligible based on patient's age to complete this topic Procedures Procedure Name Priority Date/Time Associated Diagnosis Comments BI MAMMOGRAM SCREENING TOMOSYNTHESIS BILATERAL Routine 08/24/2024 12:45 PM EDT HEPATITIS C ANTIBODY REFLEX Routine 06/02/2023 9:31 AM EDT LIPID PANEL, STANDARD Routine 05/30/2021 3:06 PM EDT from Last 3 Months or Most Recently Relevant to Health Maintenance Results * BI Mammogram Screening Tomosynthesis Bilateral (08/24/2024 12:45 PM EDT) Anatomical Region Laterality Modality Breast Bilateral Mammography 08/24/2024 12:4 5 PM EDT Narrative 09/05/2024 6:01 PM EDT ? [facility] ? [address] ?[place] [id number] ? Mammography Report ? Signed ? Patient: Colon Azul,Roxanne Amanda ?MR#: ?? [id number] ? : 1955 ?Acct:[id number] ? Age/Sex: 69 / F ?ADM Date: 08/24/24 ? Loc: HO.MAMMO ? Attending Dr: Reggie Russo MD ? Ordering Physician: Reggie Russo MD ?Resu ?? lts: 1Negative ? Date of Service: 08/24/24 ?Follow Up: 1 Year From Orig ?? inal Mammogram ? Procedure(s): MM tomosynthesis screening BI ?? Accession Number(s): [id number] ? cc: Reggie Russo MD ? EXAMINATION: ?? MM SCREENING DIGITAL BREAST TOMOSYNTHESIS, BILATERAL ? CLINICAL INFORMATION: ? Screening. Asymptomatic. ? COMPARISON: ?? Mammography: Comparison is made with available priors ? TECHNIQUE: ?? Digital breast mammography with tomosynthesis is performed in both the ?? craniocaudal and mediolateral oblique views along with computer-aided ?? detection (CAD). ? FINDINGS: ?? There are scattered areas of fibroglandular density (ACR BI-RADS breast ?? composition Category b). ? There are no significant masses, abnormal calcifications, or other ?? abnormalities. ? MM/MM tomosynthesis screening BI ?? IMPRESSION: ?? No mammographic evidence of malignancy. ? ASSESSMENT: ? BI-RADS BI-RADS 1 - Negative ? RECOMMENDATION: ?? Routine annual mammography screening. ? 1 year F/U ? This examination should not preclude the clinical evaluation of a ?? suspicious palpable abnormality. ? This patient's information was entered into a reminder system with a ?? target due date for their next mammogram. ? Electronically signed by: ??Emma Helms DO ??09/05/2024 05:58 PM EDT ? Dictated By: ?Emma Helms DO ? Signed By: ?<Electronically signed by Emma Helms, DO in OV> ? 09/05/24 1758 ? DD/ 1245 ? TD/TT: 08/24/24 1258 ? [employer] Farm Support Specialist: ? Procedure Note Polly, Image - 09/05/2024 [facility] [address] [place] [address] Mammography Report Signed Patient: Roxanne DavisMR#: [id number] : 4Acct:[id number] Age/Sex: 69 / FADM Date: 08/24/24 Loc: [facility] Attending Dr: Reggie Russo MD Ordering Physician: Reggie Russo MDResu lts: 1Negative Date of Service: 08/24/24Follow Up: 1 Year From Orig inal Mammogram Procedure(s): MM tomosynthesis screening BI Accession Number(s): [id number] cc: Reggie Russo MD EXAMINATION: MM SCREENING DIGITAL BREAST TOMOSYNTHESIS, BILATERAL CLINICAL INFORMATION: Screening. Asymptomatic. COMPARISON: Mammography: Comparison is made with available priors TECHNIQUE: Digital breast mammography with tomosynthesis is performed in both the craniocaudal and mediolateral oblique views along with computer-aided detection (CAD). FINDINGS: There are scattered areas of fibroglandular density (ACR BI-RADS breast composition Category b). There are no significant masses, abnormal calcifications, or other abnormalities. MM/MM tomosynthesis screening BI IMPRESSION: No mammographic evidence of malignancy. ASSESSMENT: BI-RADS BI-RADS 1 - Negative RECOMMENDATION: Routine annual mammography screening. 1 year F/U This examination should not preclude the clinical evaluation of a suspicious palpable abnormality. This patient's information was entered into a reminder system with a target due date for their next mammogram. Electronically signed by: Emma Helms DO 09/05/2024 05:58 PM EDT Dictated By: Emma Helms DO Signed By: <Electronically signed by Emma Helms DO in OV> 09/05/24 1758 DD/ 1245 TD/TT: 08/24/24 1258 [employer] Farm Support Specialist: Reggie Key MD IMG BI PROCEDURES Charlie carine Result - Final * Hepatitis C Antibody Reflex (06/02/2023 9:31 AM EDT) Hepatitis C Antibody Nonreactive Nonreactive [facility] Comment:Antibodies to HCV no t detected; does not exclude early acuteHCV infection. 06/02/2023 9:31 AM EDT 06/02/2023 11:33 AM EDT [facility] External Provider LAB BLO OD ORDERABLES Final Result [facility] [address] [place] [phone] * LIPID PANEL, STANDARD (05/30/2021 3:06 PM EDT) Chol/HDLC Ratio 2.4 <5.0 (calc) [facility] Cholesterol, Total 184 <200 mg/dL [facility] HDL Cholesterol 78 > OR = 50 mg/dL [facility] LDL Cholesterol 92 mg/dL (calc) [facility] Comment: Reference range: <100 ?? Desirable range <100 mg/dL for primary prevention; ?? <70 mg/dL for patients with CHD or diabetic patients ?? with > or = 2 CHD risk factors. ?? LDL-C is now calculated using the Abigail ?? calculation, which is a validated novel method providing ?? better accuracy than the Friedewald equation in the ?? estimation of LDL-C. ?? Ethan EPSTEIN et al. TORI. 2013;310(19): 8037-5903 ?? (http://[employer].Paxfire/faq/XYH360) Non-HDL Cholesterol 106 <130 mg/dL (calc) [facility] Comment: For patients with diabetes plus 1 major ASCVD risk ?? factor, treating to a non-HDL-C goal of <100 mg/dL ?? (LDL-C of <70 mg/dL) is considered a therapeutic ?? option. Triglycerides 57 <150 mg/dL [facility] 05/30/2021 3:06 PM EDT us Reggie Key MD LAB BLOOD ORDERABLES Final Result [facility] [address] from Last 3 Months or Most Recently Relevant to Health Maintenance [facility] ST[facility] Care Teams Emergency Room Physician Assistant Relationship Specialty Start Date End Date Reggie Zuniga MD [address] [place] [phone] PCP - General Internal Medicine 06/25/17
--- OUTSIDE RECORDS SUMMARY | 2025-01-20 10:42 | XMS_ITS | Encounter Summary ---
Author Organization [employer] Address [address] [facility] [address] [place] [address] Care Team Providers Care Resource Specialist Teacher Name Role Phone Reggie Zuniga MD Primary Care Provide r Encounter Details Date Type Department Care Team (Late st Contact Info) Description 11/07/2024 Refill [facility] [address] [place], [place] [phone] Johnathon Reed, AbdielD Primary hypertension Social History Tobacco Use Types Packs/Day Years Used Date Smoking Tobacco: Never Passive Smoke Exposure: Never Smokeless Tobacco: Never Alcohol Use Standard Drinks/Week Comments Never 0 (1 standard drink = 0.6 oz pur e alcohol) Depression Answer Date Recorded Patient Health Questionnaire-9 Score 0 06/21/2024 Patient Health Questionnaire-9 Score 0 06/21/2024 Last PHQ-9: Questionnaire Data Not on file 0 06/21/2024 Housing Stability Answer Date Recorded What is your housing situation today? I have aby cisneros 06/21/[address] you li [...] documented as of this encounter Visit Diagnoses Diagnosis Primary hypertension Unspecified essential hypertension documented in this encounter Additional Health Concerns Assessment Noted Time PHQ-9 Depression Total Score: 0 06/21/20 24 10:44 AM EDT documented as of this encounter Care Teams Resource Specialist Teacher Relationship Specialty Start Date End Date Reggie Zuniga MD [address] [place] [phone] PCP - General Internal Medicine 06/25/17 documented as of this encounter
--- OUTSIDE RECORDS SUMMARY | 2025-01-20 10:42 | XMS_ITS | Encounter Summary ---
Author Organization [facility] Address [address] [place] [address] [address] [place] [address] Care Team Providers Care Early Head Start Teacher Name Role Phone Reggie Zuniga MD Primary Care Provide r Reason for Visit * Reason Comments Med Refill Encounter Details Date Type Department Care Team (Late st Contact Info) Description 12/30/2022 Refill [facility] [address] [place], [place] [phone] Reggie Zuniga MD [address] [place], [place] [phone] Anxiety disorder, unspecified Social History Tobacco Use Types Packs/Day Years [...] as of this encounter Visit Diagnoses Diagnosis Anxiety disorder, unspecified documented in this encounter Care Teams Early [employer] Teacher Relationship Specialty Start Date End Date Reggie Zuniga MD [address] [place], [place] [phone] PCP - General Internal Medicine 06/25/17 documented as of this encounter
== END 2025-01-20 10:21 | disposition home or self-care (01) ==
PROVIDERS: PCP Internal Medicine; Visit Provider Physician Assistant
DX: M17.0 Bilateral primary osteoarthritis of knee (principal)
CPT/HCPCS: 20610; 99213

== ENCOUNTER → 2025-01-20 09:46 | Outpatient (BNVA) | payer OTHER, SELFPAY | PROVIDERS: PCP Internal Medicine; Visit Provider Physician Assistant | DX: M17.0 Bilateral primary osteoarthritis of knee (principal) | CPT/HCPCS: 20610; 99212; J1010; J2003 ==